=== PATIENT | male | born 1935 | race Caucasian/White ===

== ENCOUNTER 2017-06-27 15:57 | Inpatient (IN) | payer MEDICARE, SELFPAY ==
[2017-06-27] VITALS (7 sets, daily range): BP systolic 117–145; BP diastolic 52–102; PULSE 61–97; RESP 14–22; TEMP 36.2–37.2; O2SAT 91–97; BMI 23.2; BMI 23.3
--- NOTE | 2017-06-27 16:16 | NURSING ---
NO OLD EKGS
--- NOTE | 2017-06-27 16:24 | EKG12_ITS ---
Test Reason : REEPEAT Blood Pressure : / mmHG Vent. Rate : 072 BPM Atrial Rate : 072 BPM P-R Int : 230 ms QRS Dur : 104 ms QT Int : 432 ms P-R-T Axes : 036 002 046 degrees QTc Int : 473 ms Sinus rhythm with 1st degree A-V block with frequent Premature ventricular complexes Otherwise normal ECG Confirmed by KENDALL SOTO ([id number]), associate editor MONTSE REESE ([id number]) on 06/29/2017 2:43:56 PM Referred By: MARLENE Confirmed By:KENDALL SOTO
--- NOTE | 2017-06-27 16:24 | RAD_ITS ---
STUDY: X-RAY CHEST REASON FOR EXAM: Male, 81 years old. Chest pain. TECHNIQUE: Portable frontal COMPARISON: None. FINDINGS: There is elevation of the right hemidiaphragm. There is perihilar fullness associated with indistinct pulmonary bronchovasculature and prominent interstitial markings. There are faint nodules throughout the lungs. There is cardiomegaly present. There is atherosclerotic calcification of the aortic arch with tortuosity. There are diffuse degenerative changes of the visualized thoracic spine. There is degenerative osteoarthritis of the bilateral shoulders. There is no demonstrated abnormality of the visualized soft tissue structures of the upper abdomen. RAD/Chest 1 View (Portable) IMPRESSION: Cardiomegaly associated with pulmonary venous congestion and possible interstitial edema. Scattered scattered faint nodules throughout the lungs, consider CT for further evaluation. Electronically Signed: Alethea Mujica MD at 16:53 EST Tel , Service support ,
--- NOTE | 2017-06-27 16:27 | ED.DCSUM_ITS ---
- ER Visit Summary Date of Service: 06/27/17 Chief Complaint: Palpitations History of Present Illness: The patient is a 81 M presenting with palpitations for 1-2 days. Patient states that he feels his heart thumping in his chest. He states that he sometimes feels like it is skipping beats. He denies chest pain or shortness of breath. Denies weakness or fatigue. Denies dizziness or syncope. He states he otherwise feels well. He tried to take his blood pressure today and the machine was unable to read his pulse because it was irregular. Physical Examination: Vitals are stable. Patient is afebrile. Alert no acute distress. HEENT exam is unremarkable. Neck is supple. Lungs are clear and equal bilaterally. Heart is regular rate and rhythm. Abdomen is soft nontender nondistended. Extremities symmetric pedal edema Skin is warm and dry. No focal neurologic deficit. Remainder of exam is unremarkable. Emergency Department Course and Treatment: EKG is sinus rate of 86 with frequent PVCs. CBC shows hemoglobin 12.9. Chemistries normal except for glucose 125, BUN 22. Troponin is negative. BNP 542. D-dimer is normal. TSH 4.8. Magnesium level 2.1. Chest x-ray shows cardiomegaly. EKG is sinus with frequent PVCs. While on the monitor patient developed ventricular bigeminy. Discussed with the hospitalist for observation. Disposition: Admission Impression: Ventricular bigeminy, CHF This note was generated with [employer] dictation software. It may contain incorrect words, spelling, and punctuation that were not noted in review of the chart prior to signing ED Disposition - Plan for ED Patient: Chief Complaint: Palpitations Referrals: Chaitanya Pal Chi, MD [Primary Care Provider] -
--- NOTE | 2017-06-27 16:27 | NURSING ---
NO LW OR POA
[2017-06-27] MEDS: Aspirin 81 MG TAB.CHEW 324 MG PO (16:35)
[2017-06-27 16:59] LABS: Absolute Lymphocyte Count 0.97 X10^3/ul (0.83-4.51); Absolute Neutrophil Count 5.9 X10^3/uL (2.0-7.7); Basophil# 0.03 X10^3/uL; Basophil% 0.4 % (0-1); Eosinophil# 0.03 X10^3/uL; Eosinophils% 0.4 % (0-5); Hematocrit 39.6 % (40-54); Hemoglobin 12.9 g/dl (13.0-16.5); Lymphocyte # 0.97 X10^3/ul (4.0); Lymphocyte % 12.8 % (19-41); Mean Corp Hgb Conc 32.6 g/gl (32-36); Mean Corpuscular Hgb 30.6 pg (27.0-32.0); Mean Corpuscular Volume 93.8 fL (80-94); Mean Platelet Vol. 9.7 fl (6.2-12.0); Monocyte# 0.62 X10^3/uL; Monocyte% 8.2 % (0-10); Neutrophil % 77.9 % (47-70); POSITIVE COUNT NO; POSITIVE DIFFERENTIAL NO; POSITIVE MORPHOLOGY NO; Platelet Count 180 K/mm3 (150-450); RBC Distribution Width CV 13.6 % (11.6-14.6); RBC Distribution Width SD 46.5 fl (35.1-43.9); Red Blood Count 4.22 M/mm3 (4.6-6.2); White Blood Count 7.6 K/mm3 (4.4-11.0)
[2017-06-27 17:15] LABS: Anion Gap 8 (5-15); BUN 22 mg/dL (7-18); BUN/Creat Ratio 21.4 RATIO (10-20); Calcium,Total 8.5 mg/dL (8.5-10.1); Chloride 101 mmol/L (98-107); Creatinine, Serum 1.03 mg/dL (0.70-1.30); EST Glomerular Filtration Rate 73 mL/min (>60); Est Glom Filt Rate - Afr Amer 89 mL/min (>60); Estimated Creatinine Clearance 62.41 ml/min; Glucose 125 mg/dL (74-106); Magnesium 2.1 mg/dL (1.6-2.6); Potassium 4.1 mmol/L (3.5-5.1); Sodium Level 134 mmol/L (136-145)
--- NOTE | 2017-06-27 17:33 | EKG12_ITS ---
Test Reason : PALPS Blood Pressure : / mmHG Vent. Rate : 086 BPM Atrial Rate : 086 BPM P-R Int : 226 ms QRS Dur : 100 ms QT Int : 388 ms P-R-T Axes : 069 -05 031 degrees QTc Int : 464 ms Sinus rhythm with 1st degree A-V block with frequent and consecutive Premature ventricular complexes Abnormal ECG Confirmed by KENDALL SOTO ([id number]), brands editor MONTSE REESE ([id number]) on 06/29/2017 2:44:19 PM Referred By: MARLON/MARLENE Confirmed By:KENDALL SOTO
[2017-06-27 21:40] LABS: Free T3 2.5 pg/mL (2.18-3.98); T4 Free Direct 1.11 ng/dL (0.76-1.46)
[2017-06-27] MEDS: Heparin Injection 5,000 UNITS/ML Syringe 5000 UNITS SC (21:57)
[2017-06-27] MEDS: Furosemide 20 MG/2 ML VIAL IV (21:57)
--- NOTE | 2017-06-27 22:02 | PCM.HP.STD ---
Problem List (1) Heart palpitations Status: Acute History of Present Illness Date of Admission: 06/27/17 Chief Complaint: palpitations The patient is a 81 year old M who was seen in the emergency room at [facility] means of palpitations which he states started today. Patient denies any chest pain, shortness of breath, cough, or purulent sputum production, fever or chills. Patient also complained of increased swelling around his ankles and feet that he noted first last week. Evaluation in the emergency room included labs which showed a normal CBC, BUN was elevated at 22, beta natruretic peptide was elevated at 542, TSH was elevated at 4.80. Patient had a chest x-ray which was read out by radiology to show mild vascular congestion/CHF. Patient's EKG showed periods of ventricular bigeminy along with periods of what appear to be Mobitz 1 type heart block. Patient's heart rate was approximately 75, there is no evidence of ischemic changes noted on his EKG, patient's troponin was unremarkable. On examination, patient's ankles appeared to be edematous bilaterally with +2 mm edema as were his feet. Patient's pulse ox on room air was noted to be in the 90s and he did not appear dyspneic. Auscultation of the lungs revealed inspiratory rales at the right lung base otherwise lungs are clear, heart rate and rhythm was irregular. Patient was alert and did not appear to be in any distress. I had a long discussion with the patient and the patient's family members (his and daughter) who were in the room. Patient denied any chest discomfort and denied any recent flulike illness. Patient will be admitted to PCU for acute CHF, type unknown, and bigeminy as well as Mobitz 1 type heart block. Echocardiogram will be obtained, patient was placed on IV Lasix, cardiac enzymes will be cycled, he will be seen in consultation by cardiology who requested that he be n.p.o. after midnight for possible stress test tomorrow. Patient's chest x-ray will be repeated tomorrow, he will be monitored on telemetry and he will remain on Lotrel for his blood pressure. Patient's labs will be drawn for T3 and T4 as the patient does not take his Synthroid-family states that he was worried about side effects and is not taking this medication since last fall. Past Medical History Allergies No Known Allergies Allergy (Verified 06/27/17 15:58) Home Medications: Ambulatory Orders Medication Instructions Recorded Amlodipine/Benazepril [Lotrel 1 capsule PO DAILY 06/27/17 10-20 MG Capsule] Surgical History: no surgical history Psychiatric History: No pertinent psych hx Lives: Spouse/ Significant Other Smoking Status: Former smoker Tobacco Use: Non-smoker Alcohol: Rare Drugs: None - *Family History Maternal History Items: No pertinent history Paternal History Items: No pertinent history Review of Systems Constitutional: Denies: Anorexia, Chills, Fever, Night Sweats, Malaise, Weakness, Weight Change, Fatigue Eyes: Denies: Blurred vision, Cataracts, Conjunctivae Inflammation, Double vision, Drainage HEENT: Denies: Difficulty Hearing, Difficulty Swallowing, Dysphasia, Ear Pain, Eye Pain, Head Aches, Hearing Changes, Nasal bleeding, Nasal Congestion Cardiovascular: Reports: Edema, Palpitations. Denies: Chest Pain, Claudication, Chest Pressure, Chest Tightness, Heaviness, Light Headedness, Orthopnea, Paroxysmal Noc. Dyspnea, Syncope Respiratory: Denies: Cough, Hemoptysis, Pleuritic Pain, Shortness of Breath, Shortness of breath at rest, Shortness of breath upon exertion, Sputum production, Wheezing Gastrointestinal: Denies: Abdominal Pain, Constipation, Diarrhea, Hematemesis, Hematochezia, Nausea, Melena, Vomiting Genitourinary: Denies: Dysuria, Frequency, Hematuria, Hesitancy, Urgency Musculoskeletal: Denies: Back Pain, Foot Pain, Joint Pain, Joint stiffness, Joint swelling, Joint Tenderness, Leg Pain Skin: Denies: Dryness, Jaundice, Pruritis, Rash Neurological: Denies: Blurred vision, Double vision, Slurred speech, Difficulty swallowing, Focal weakness, Headaches, Incoordination, Numbness, Tingling Psychiatric: Denies: Anxiety, Depression, Homicidal Ideations, Suicidal Ideations Endocrine: Denies: Change in Body Habitus, Heat/ Cold Intolerance, Polydipsia, Polyuria Hematologic/ Lymphatic: Denies: Adenopathy, Anemia, Easy Bruising, Easy Bleeding, Petechiae, Purpura VTE Information - Inpt Only VTE Present on Admission: No VTE Mechan Device Prophylaxis: None VTE Pharm Prophylaxis ordered?: Yes Patient Problems: Active and Suspected Problems Heart palpitations (Acute) - Physical Exam General: Alert, Oriented x3, Cooperative, No apparent distress, Well developed, Well nourished HEENT: Atraumatic, PERRLA, EOMI, Normocephalic Oral: Moist Mucosa Neck: Supple, No JVD, Negative Carotid Bruits, No Nuchal Rigidity, Trachea Midline, Thyroid Normal Size and Texture Lungs: Clear to auscultation, Normal air movement, No rhonchi, No wheeze, Rales - Inspiratory rales at the right lung base Cardiovascular: Normal S1, Normal S2, No murmurs, PMI Normal, Irregular Rate, No rub noted, No Gallop Abdomen: Bowel Sounds Present, Soft, Non Tender, Non-Distended, No hernias noted Extremities: Capillary Refill Less than 3 Seconds, Edema - +2 mm pitting edema is noted over the ankles and feet Skin: No rashes, No breakdown Musculoskeletal: No Tenderness to Palpation of Joints or Extremities, No Muscle Wasting Neurological: Cranial nerves II-XII grossly intact, Neuro grossly intact, Muscle tone normal, Sensory exam intact to light touch and pain, Coordination normal Psych/Mental Status: Normal Affect, Appropriate, Alert and oriented to time, place, person, mood and affect Vital Signs Temp Pulse Resp BP Pulse Ox 99.0 F 78 22 H 118/57 L 91 06/27/17 20:08 06/27/17 20:08 06/27/17 20:08 06/27/17 20:08 06/27/17 20:08 Oxygen Delivery Method Room Air Weight: 80.1 kg Body Mass Index (BMI) 23.3 Laboratory Tests Past 24 Hrs 06/27/17 06/27/17 20:55 20:55 Troponin I 0.03 Free T4 1.11 Free T3 pg/dL 2.5 Assessment/Plan Active and Suspected Problems Heart palpitations (Acute) #1 ventricular bigeminy with periods of Mobitz 1 second degree heart block-patient will be admitted to PCU, he will be monitored on telemetry, echocardiogram will be obtained, cardiology will see the patient in consultation, patient will possibly need a stress test performed #2 acute congestive heart failure-this appears to be mild at the present time, patient is not hypoxic, type of congestive heart failure is unknown at this time, echocardiogram will be obtained and he will be seen in consultation by cardiology, IV Lasix will be administered, labs will be repeated, chest x-ray will be repeated #3 hypertension #4 peripheral edema-possibly secondary to congestive heart failure versus side effect from Lotrel which she takes for blood pressure #5 hypothyroidism-T3 and T4 levels will be obtained #6 poor medical compliance with medications Code Visit Inpatient E&M: 16730 Init Hosp L3
--- NOTE | 2017-06-27 22:13 | HP.PCM_ITS ---
Problem List (1) Heart palpitations Status: Acute History of Present Illness Date of Admission: 06/27/17 Chief Complaint: palpitations The patient is a 81 year old M who was seen in the emergency room at [facility] means of palpitations which he states started today. Patient denies any chest pain, shortness of breath, cough, or purulent sputum production, fever or chills. Patient also complained of increased swelling around his ankles and feet that he noted first last week. Evaluation in the emergency room included labs which showed a normal CBC, BUN was elevated at 22, beta natruretic peptide was elevated at 542, TSH was elevated at 4.80. Patient had a chest x-ray which was read out by radiology to show mild vascular congestion/CHF. Patient's EKG showed periods of ventricular bigeminy along with periods of what appear to be Mobitz 1 type heart block. Patient's heart rate was approximately 75, there is no evidence of ischemic changes noted on his EKG, patient's troponin was unremarkable. On examination, patient's ankles appeared to be edematous bilaterally with +2 mm edema as were his feet. Patient's pulse ox on room air was noted to be in the 90s and he did not appear dyspneic. Auscultation of the lungs revealed inspiratory rales at the right lung base otherwise lungs are clear, heart rate and rhythm was irregular. Patient was alert and did not appear to be in any distress. I had a long discussion with the patient and the patient's family members (his and daughter) who were in the room. Patient denied any chest discomfort and denied any recent flulike illness. Patient will be admitted to PCU for acute CHF, type unknown, and bigeminy as well as Mobitz 1 type heart block. Echocardiogram will be obtained, patient was placed on IV Lasix, cardiac enzymes will be cycled, he will be seen in consultation by cardiology who requested that he be n.p.o. after midnight for possible stress test tomorrow. Patient's chest x-ray will be repeated tomorrow, he will be monitored on telemetry and he will remain on Lotrel for his blood pressure. Patient's labs will be drawn for T3 and T4 as the patient does not take his Synthroid-family states that he was worried about side effects and is not taking this medication since last fall. Past Medical History Allergies No Known Allergies Allergy (Verified 06/27/17 15:58) Home Medications: Ambulatory Orders Medication Instructions Recorded Amlodipine/Benazepril [Lotrel 1 capsule PO DAILY 06/27/17 10-20 MG Capsule] Surgical History: no surgical history Psychiatric History: No pertinent psych hx Lives: Spouse/ Significant Other Smoking Status: Former smoker Tobacco Use: Non-smoker Alcohol: Rare Drugs: None - *Family History Maternal History Items: No pertinent history Paternal History Items: No pertinent history Review of Systems Constitutional: Denies: Anorexia, Chills, Fever, Night Sweats, Malaise, Weakness , Weight Change, Fatigue Eyes: Denies: Blurred vision, Cataracts, Conjunctivae Inflammation, Double vision, Drainage HEENT: Denies: Difficulty Hearing, Difficulty Swallowing, Dysphasia, Ear Pain, Eye Pain, Head Aches, Hearing Changes, Nasal bleeding, Nasal Congestion Cardiovascular: Reports: Edema, Palpitations. Denies: Chest Pain, Claudication , Chest Pressure, Chest Tightness, Heaviness, Light Headedness, Orthopnea, Paroxysmal Noc. Dyspnea, Syncope Respiratory: Denies: Cough, Hemoptysis, Pleuritic Pain, Shortness of Breath, Shortness of breath at rest, Shortness of breath upon exertion, Sputum production, Wheezing Gastrointestinal: Denies: Abdominal Pain, Constipation, Diarrhea, Hematemesis, Hematochezia, Nausea, Melena, Vomiting Genitourinary: Denies: Dysuria, Frequency, Hematuria, Hesitancy, Urgency Musculoskeletal: Denies: Back Pain, Foot Pain, Joint Pain, Joint stiffness, Joint swelling, Joint Tenderness, Leg Pain Skin: Denies: Dryness, Jaundice, Pruritis, Rash Neurological: Denies: Blurred vision, Double vision, Slurred speech, Difficulty swallowing, Focal weakness, Headaches, Incoordination, Numbness, Tingling Psychiatric: Denies: Anxiety, Depression, Homicidal Ideations, Suicidal Ideations Endocrine: Denies: Change in Body Habitus, Heat/ Cold Intolerance, Polydipsia, Polyuria Hematologic/ Lymphatic: Denies: Adenopathy, Anemia, Easy Bruising, Easy Bleeding , Petechiae, Purpura VTE Information - Inpt Only VTE Present on Admission: No VTE Mechan Device Prophylaxis: None VTE Pharm Prophylaxis ordered?: Yes Patient Problems: Active and Suspected Problems Heart palpitations (Acute) - Physical Exam General: Alert, Oriented x3, Cooperative, No apparent distress, Well developed, Well nourished HEENT: Atraumatic, PERRLA, EOMI, Normocephalic Oral: Moist Mucosa Neck: Supple, No JVD, Negative Carotid Bruits, No Nuchal Rigidity, Trachea Midline, Thyroid Normal Size and Texture Lungs: Clear to auscultation, Normal air movement, No rhonchi, No wheeze, Rales - Inspiratory rales at the right lung base Cardiovascular: Normal S1, Normal S2, No murmurs, PMI Normal, Irregular Rate, No rub noted, No Gallop Abdomen: Bowel Sounds Present, Soft, Non Tender, Non-Distended, No hernias noted Extremities: Capillary Refill Less than 3 Seconds, Edema - +2 mm pitting edema is noted over the ankles and feet Skin: No rashes, No breakdown Musculoskeletal: No Tenderness to Palpation of Joints or Extremities, No Muscle Wasting Neurological: Cranial nerves II-XII grossly intact, Neuro grossly intact, Muscle tone normal, Sensory exam intact to light touch and pain, Coordination normal Psych/Mental Status: Normal Affect, Appropriate, Alert and oriented to time, place, person, mood and affect Vital Signs Temp Pulse Resp BP Pulse Ox 99.0 F 78 22 H 118/57 L 91 06/27/17 20:08 06/27/17 20:08 06/27/17 20:08 06/27/17 20:08 06/27/17 20:08 Oxygen Delivery Method Room Air Weight: 80.1 kg Body Mass Index (BMI) 23.3 Laboratory Tests Past 24 Hrs 06/27/17 06/27/17 20:55 20:55 Troponin I 0.03 Free T4 1.11 Free T3 pg/dL 2.5 Assessment/Plan Active and Suspected Problems Heart palpitations (Acute) #1 ventricular bigeminy with periods of Mobitz 1 second degree heart block- patient will be admitted to PCU, he will be monitored on telemetry, echocardiogram will be obtained, cardiology will see the patient in consultation , patient will possibly need a stress test performed #2 acute congestive heart failure-this appears to be mild at the present time, patient is not hypoxic, type of congestive heart failure is unknown at this time , echocardiogram will be obtained and he will be seen in consultation by cardiology, IV Lasix will be administered, labs will be repeated, chest x-ray will be repeated #3 hypertension #4 peripheral edema-possibly secondary to congestive heart failure versus side effect from Lotrel which she takes for blood pressure #5 hypothyroidism-T3 and T4 levels will be obtained #6 poor medical compliance with medications Code Visit Inpatient E&M: 89480 Init Hosp L3
[2017-06-28] VITALS (34 sets, daily range): BP systolic 87–128; BP diastolic 47–79; PULSE 54–87; RESP 11–25; TEMP 36.8–37.7; O2SAT 92–99
--- NOTE | 2017-06-28 05:55 | ECHOD_ITS ---
Reason For Study: CHF Procedure This was a 2D Doppler, Color Flow transthoracic echocardiogram. Exam performed portable in patient room. Left Ventricle Mildly dilated left ventricle. The estimated ejection fraction is 40 %. cannot assess diastolic function due to afib. There is moderate global hypokinesis of the left ventricle. Right Ventricle Normal size and thickness. Normal systolic function. Atria The left atrium is moderately enlarged. Normal right atrium. Normal atrial septum. Mitral Valve Mild diffuse mitral valve thickening. Equivocal mitral valve prolapse. Trivial mitral valve insufficiency. Tricuspid Valve Normal tricuspid valve. Mild to moderate (1-2+) tricuspid valve insufficiency. Right ventricular systolic pressure estimated to be 57 mmHg. Moderate pulmonary hypertension. Aortic Valve Trisinus/trileaflet aortic valve. Mild diffuse aortic valve thickening. Pulmonic Valve Normal pulmonic valve. Trivial pulmonic valve insufficiency. Great Vessels Normal aortic root. Normal arch. The inferior vena cava is dilated. No collapse of the inferior vena cava. Pericardium/Pleural No pericardial effusion. MMode/2D Measurements & Calculations LVIDd: 5.4 cm IVSd: 1.2 cm LVOT diam: 2.2 cm LVIDs: 4.4 cm LVPWd: 1.0 cm LVOT area: 3.7 cm2 RVDd: 3.2 cm FS: 18.8 % Ao root diam: 3.9 cm LAV(MOD-bp): 62.3 ml EDV(MOD-sp4): 110.7 ml LA dimension: 4.4 cm LAV(MOD-bp) Indexed: 30.6 ml/m2 ESV(MOD-sp4): 79.1 ml LAV(MOD-sp2): 85.2 ml EF(MOD-sp4): 28.5 % LAV(MOD-sp4): 45.2 ml EDV(MOD-sp2): 69.5 ml SV(MOD-sp4): 31.6 ml SV(MOD-sp2): 27.0 ml EF(MOD-sp2): 38.9 % LA A4 area: 18.1 cm2 RA A4 area: 18.1 cm2 Doppler Measurements & Calculations MV E max sabrina: 95.0 cm/sec Ao V2 max: 139.0 cm/sec LV V1 max: 95.0 cm/sec MV A max sabrina: 60.0 cm/sec Ao max P.8 mmHg LV V1 max P.6 mmHg MV E/A: 1.6 ILIANA(V,D): 2.5 cm2 PA V2 max: 97.2 cm/sec TR max sabrina: 294.0 cm/sec TR max P.6 mmHg Interpretation Summary Mildly dilated left ventricle. The estimated ejection fraction is 40 %. cannot assess diastolic function due to afib There is moderate global hypokinesis of the left ventricle. The left atrium is moderately enlarged. Trivial mitral valve insufficiency. Mild to moderate (1-2+) tricuspid valve insufficiency. Right ventricular systolic pressure estimated to be 57 mmHg. Moderate pulmonary hypertension. Pt appears to be in atrial fibrillation. There is no comparison study available. Ordering Physician: Nicola Donnelly Referring Physician: Chaitanya Pal Chi Performed By: Gianna Lara RDCS, RVT
--- NOTE | 2017-06-28 05:55 | EKG12_ITS ---
Test Reason : MORNING EKG Blood Pressure : / mmHG Vent. Rate : 072 BPM Atrial Rate : 072 BPM P-R Int : 000 ms QRS Dur : 108 ms QT Int : 456 ms P-R-T Axes : 000 -14 -16 degrees QTc Int : 499 ms Accelerated Junctional rhythm with frequent and consecutive Premature ventricular complexes in a joe destiny of bigeminy Prolonged QT Abnormal ECG When compared with ECG of 27-JUN-2017 17:37, MANUAL COMPARISON REQUIRED, DATA IS UNCONFIRMED Confirmed by KENDALL SOTO ([id number]), marketing editor MONTSE REESE ([id number]) on 07/04/2017 2:21:14 PM Referred By: CECY Confirmed By:KENDALL SOTO
[2017-06-28] MEDS: Heparin Injection 5,000 UNITS/ML Syringe 5000 UNITS SC (05:56)
[2017-06-28] MEDS: Furosemide 20 MG/2 ML VIAL IV (05:56)
[2017-06-28] MEDS: 0.9% NaCl Peripheral Flush Adult/Peds IV (05:57)
[2017-06-28 06:45] LABS: Absolute Lymphocyte Count 1.26 X10^3/ul (0.83-4.51); Absolute Neutrophil Count 3.6 X10^3/uL (2.0-7.7); Basophil# 0.04 X10^3/uL; Basophil% 0.7 % (0-1); Eosinophil# 0.06 X10^3/uL; Eosinophils% 1.1 % (0-5); Hematocrit 39.7 % (40-54); Hemoglobin 13.2 g/dl (13.0-16.5); Lymphocyte # 1.26 X10^3/ul (4.0); Lymphocyte % 22.5 % (19-41); Mean Corp Hgb Conc 33.2 g/gl (32-36); Mean Corpuscular Hgb 30.9 pg (27.0-32.0); Mean Platelet Vol. 9.6 fl (6.2-12.0); Monocyte# 0.65 X10^3/uL; Monocyte% 11.6 % (0-10); Neutrophil # 3.58 X10^3/uL (2.7-7.7); Neutrophil % 63.9 % (47-70); Platelet Count 170 K/mm3 (150-450); RBC Distribution Width CV 13.6 % (11.6-14.6); RBC Distribution Width SD 46.4 fl (35.1-43.9); Red Blood Count 4.27 M/mm3 (4.6-6.2); White Blood Count 5.6 K/mm3 (4.4-11.0)
[2017-06-28 06:51] LABS: International Normalized Ratio 1.3; Prothrombin Time (Protime)PT. 15.3 SECONDS (11.7-14.9)
[2017-06-28 06:52] LABS: Partial Thromboplast Time 33.8 Seconds (24.1-36.2)
[2017-06-28 06:53] LABS: POSITIVE COUNT NO; POSITIVE DIFFERENTIAL NO; POSITIVE MORPHOLOGY NO
[2017-06-28 07:15] LABS: Anion Gap 9 (5-15); BUN 16 mg/dL (7-18); BUN/Creat Ratio 19.5 RATIO (10-20); Calcium,Total 8.4 mg/dL (8.5-10.1); Chloride 100 mmol/L (98-107); Creatinine, Serum 0.82 mg/dL (0.70-1.30); EST Glomerular Filtration Rate 95 mL/min (>60); Est Glom Filt Rate - Afr Amer 115 mL/min (>60); Estimated Creatinine Clearance 78.49 ml/min; Glucose 105 mg/dL (74-106); Potassium 3.6 mmol/L (3.5-5.1); Sodium Level 134 mmol/L (136-145)
[2017-06-28] MEDS: Lisinopril 20 MG Tablet PO (09:44)
[2017-06-28] MEDS: amLODIPine 10 MG Tablet PO (09:44)
[2017-06-28] MEDS: TICAGRELOR 90 MG TABLET 180 MG PO (10:53)
[2017-06-28] MEDS: DiphenhydrAMINE 25 MG Capsule 50 MG PO (10:54)
[2017-06-28] MEDS: Aspirin E.C. 81 MG Tablet PO (10:54)
--- NOTE | 2017-06-28 12:00 | EKG12_ITS ---
Test Reason : POST STENT Blood Pressure : / mmHG Vent. Rate : 068 BPM Atrial Rate : 227 BPM P-R Int : 000 ms QRS Dur : 100 ms QT Int : 446 ms P-R-T Axes : 000 -29 267 degrees QTc Int : 474 ms Atrial fibrillation with premature ventricular or aberrantly conducted complexes Abnormal ECG When compared with ECG of 28-JUN-2017 05:00, MANUAL COMPARISON REQUIRED, DATA IS UNCONFIRMED Confirmed by KENDALL SOTO ([id number]), makeup editor MONTSE REESE ([id number]) on 07/04/2017 1:55:48 PM Referred By: Debora SOTO Confirmed By:KENDALL SOTO
[2017-06-28 12:06] LABS: ACT Activated Clotting Time 186 sec (74-137)
--- NOTE | 2017-06-28 12:17 | PCM.PROGNOTE ---
<Nati Oropeza - Last Filed: 06/28/17 12:37> Patient Problems: Active and Suspected Problems Heart palpitations (Acute) Lower extremity edema (Acute) Shortness of breath (Acute) LV dysfunction (Acute) Subjective: Patient seen and examined. States he came to the emergency room due to swelling of feet at home. Denies chest pain, shortness of breath, palpitations. Patient to undergo cardiac catheterization due to echocardiogram findings. Patient agreeable to plan. - Physical Exam General: Alert, Oriented x3, Cooperative, No apparent distress HEENT: Atraumatic, PERRLA, EOMI, Normocephalic Neck: Supple, No JVD, Negative Carotid Bruits Lungs: Diminished, Rales Cardiovascular: Normal S1, Normal S2, No murmurs, - - A.fib, rate controlled. Abdomen: Bowel Sounds Present, Soft, Non Tender, Non-Distended Extremities: No clubbing, No cyanosis, Capillary Refill Less than 3 Seconds, - - Nonpitting edema bilateral feet/ankles Skin: No rashes, No breakdown Musculoskeletal: No Tenderness to Palpation of Joints or Extremities Neurological: Cranial nerves II-XII grossly intact, Neuro grossly intact Psych/Mental Status: Normal Affect, Appropriate Vital Signs Temp Pulse Resp BP Pulse Ox 98.7 F 84 18 119/54 L 98 06/28/17 09:28 06/28/17 10:59 06/28/17 09:28 06/28/17 09:28 06/28/17 09:28 Oxygen Delivery Method Room Air Weight: 80.1 kg Body Mass Index (BMI) 23.3 Intake and Output for Last 24 Hours 06/26/17 06/27/17 06/28/17 23:59 23:59 23:59 Intake Total 240 / 240 Output Total 550 / 550 2975 / 2975 Balance -310 / -310 -2975 / -2975 Laboratory Tests Past 24 Hrs 06/27/17 06/27/17 06/28/17 20:55 20:55 00:50 WBC RBC Hgb Hct MCV MCH MCHC RDW RDW Differential Plt Count MPV Immature Gran % (Auto) Neut % (Auto) Lymph % (Auto) [place] % (Auto) Eos % (Auto) Baso % (Auto) Absolute Neuts (auto) Absolute Lymphs (auto) Total Counted PT INR APTT Activated Clotting Time Sodium Potassium Chloride Carbon Dioxide Anion Gap BUN Creatinine Estim Creat Clear Calc Est GFR (MDRD) Af Amer Est GFR (MDRD) Non-Af BUN/Creatinine Ratio Glucose Calcium Troponin I 0.03 0.03 Free T4 1.11 Free T3 pg/dL 2.5 06/28/17 06/28/17 06/28/17 06:30 06:30 06:30 WBC 5.6 RBC 4.27 L Hgb 13.2 Hct 39.7 L MCV 93.0 MCH 30.9 MCHC 33.2 RDW 13.6 RDW Differential 46.4 H Plt Count 170 MPV 9.6 Immature Gran % (Auto) 0.200 Neut % (Auto) 63.9 Lymph % (Auto) 22.5 [place] % (Auto) 11.6 H Eos % (Auto) 1.1 Baso % (Auto) 0.7 Absolute Neuts (auto) 3.6 Absolute Lymphs (auto) 1.26 Total Counted Not Reportable PT 15.3 H INR 1.3 APTT 33.8 Activated Clotting Time Sodium 134 L Potassium 3.6 Chloride 100 Carbon Dioxide 25.0 Anion Gap 9 BUN 16 Creatinine 0.82 Estim Creat Clear Calc 78.49 Est GFR (MDRD) Af Amer 115 Est GFR (MDRD) Non-Af 95 BUN/Creatinine Ratio 19.5 Glucose 105 Calcium 8.4 L Troponin I 0.03 Free T4 Free T3 pg/dL 06/28/17 11:56 WBC RBC Hgb Hct MCV MCH MCHC RDW RDW Differential Plt Count MPV Immature Gran % (Auto) Neut % (Auto) Lymph % (Auto) [place] % (Auto) Eos % (Auto) Baso % (Auto) Absolute Neuts (auto) Absolute Lymphs (auto) Total Counted PT INR APTT Activated Clotting Time 186 H Sodium Potassium Chloride Carbon Dioxide Anion Gap BUN Creatinine Estim Creat Clear Calc Est GFR (MDRD) Af Amer Est GFR (MDRD) Non-Af BUN/Creatinine Ratio Glucose Calcium Troponin I Free T4 Free T3 pg/dL Assessment/Plan Active and Suspected Problems Heart palpitations (Acute) Lower extremity edema (Acute) Shortness of breath (Acute) LV dysfunction (Acute) 1. Acute CHF with reduced EF- Echo showed estimated ejection fraction of 40%, moderate global hypokinesis of the left ventricle, moderately enlarged left atrium, mild to moderate tricuspid valve insufficiency, moderate pulmonary hypertension with RVSP estimated to be 57 mmHg. Chest x-ray on admission with pulmonary congestion. Patient with minimal edema bilateral feet and ankles. Denies shortness of breath. Stable on room air. Continue Lasix 40 mg daily. Troponin negative. Dr. Quiroz, Cardiology consulted. Patient to undergo cardiac catheterization. 2. Ventricular bigeminy/Mobitz 1 secondary block-to undergo cardiac catheterization as noted above. Patient is asymptomatic. 3. Hypertension-stable, continue home regimen. 4. Subclinical hypothyroidism-TSH 4.8. T3-T4 normal. DVT prophylaxis-heparin subcu. This patient was seen by Nati Oropeza NP-Martina under the supervision of Dr. Will. <Jamarcus Will - Last Filed: 06/28/17 16:00> - Physical Exam General: Alert, Cooperative, No apparent distress HEENT: Atraumatic, Normocephalic Lungs: Clear to auscultation, Normal air movement, No rhonchi, No wheeze Cardiovascular: Regular rate, Regular Rhythm, Normal S1, Normal S2 Abdomen: Bowel Sounds Present, Soft, Non Tender, Non-Distended Extremities: No cyanosis, No Calf Tenderness, - Skin: No rashes, No breakdown Musculoskeletal: No Tenderness to Palpation of Joints or Extremities Psych/Mental Status: Normal Affect, Appropriate Vital Signs Temp Pulse Resp BP Pulse Ox 37.4 C H 68 17 112/62 96 06/28/17 14:00 06/28/17 14:10 06/28/17 14:10 06/28/17 14:10 06/28/17 14:10 Oxygen Flow Rate 2 Oxygen Delivery Method Nasal Cannula Weight: 80.1 kg Body Mass Index (BMI) 23.3 Intake and Output for Last 24 Hours 06/26/17 06/27/17 06/28/17 23:59 23:59 23:59 Intake Total 240 / 240 Output Total 550 / 550 2975 / 2975 Balance -310 / -310 -2975 / -2975 Laboratory Tests Past 24 Hrs 06/27/17 06/27/17 06/28/17 20:55 20:55 00:50 WBC RBC Hgb Hct MCV MCH MCHC RDW RDW Differential Plt Count MPV Immature Gran % (Auto) Neut % (Auto) Lymph % (Auto) [place] % (Auto) Eos % (Auto) Baso % (Auto) Absolute Neuts (auto) Absolute Lymphs (auto) Total Counted PT INR APTT Activated Clotting Time Sodium Potassium Chloride Carbon Dioxide Anion Gap BUN Creatinine Estim Creat Clear Calc Est GFR (MDRD) Af Amer Est GFR (MDRD) Non-Af BUN/Creatinine Ratio Glucose Calcium Total Creatine Kinase Troponin I 0.03 0.03 Free T4 1.11 Free T3 pg/dL 2.5 MRSA (PCR) 06/28/17 06/28/17 06/28/17 06:30 06:30 06:30 WBC 5.6 RBC 4.27 L Hgb 13.2 Hct 39.7 L MCV 93.0 MCH 30.9 MCHC 33.2 RDW 13.6 RDW Differential 46.4 H Plt Count 170 MPV 9.6 Immature Gran % (Auto) 0.200 Neut % (Auto) 63.9 Lymph % (Auto) 22.5 [place] % (Auto) 11.6 H Eos % (Auto) 1.1 Baso % (Auto) 0.7 Absolute Neuts (auto) 3.6 Absolute Lymphs (auto) 1.26 Total Counted Not Reportable PT 15.3 H INR 1.3 APTT 33.8 Activated Clotting Time Sodium 134 L Potassium 3.6 Chloride 100 Carbon Dioxide 25.0 Anion Gap 9 BUN 16 Creatinine 0.82 Estim Creat Clear Calc 78.49 Est GFR (MDRD) Af Amer 115 Est GFR (MDRD) Non-Af 95 BUN/Creatinine Ratio 19.5 Glucose 105 Calcium 8.4 L Total Creatine Kinase Troponin I 0.03 Free T4 Free T3 pg/dL MRSA (PCR) 06/28/17 06/28/17 06/28/17 11:56 12:30 12:37 WBC RBC Hgb Hct MCV MCH MCHC RDW RDW Differential Plt Count MPV Immature Gran % (Auto) Neut % (Auto) Lymph % (Auto) [place] % (Auto) Eos % (Auto) Baso % (Auto) Absolute Neuts (auto) Absolute Lymphs (auto) Total Counted PT INR APTT Activated Clotting Time 186 H 257 H Sodium Potassium Chloride Carbon Dioxide Anion Gap BUN Creatinine Estim Creat Clear Calc Est GFR (MDRD) Af Amer Est GFR (MDRD) Non-Af BUN/Creatinine Ratio Glucose Calcium Total Creatine Kinase Troponin I Free T4 Free T3 pg/dL MRSA (PCR) Negative 06/28/17 06/28/17 06/28/17 13:00 13:00 13:26 WBC 6.8 RBC 4.04 L Hgb 12.5 L Hct 37.7 L MCV 93.3 MCH 30.9 MCHC 33.2 RDW 13.5 RDW Differential 46.3 H Plt Count 181 MPV 9.7 Immature Gran % (Auto) Neut % (Auto) Lymph % (Auto) [place] % (Auto) Eos % (Auto) Baso % (Auto) Absolute Neuts (auto) Absolute Lymphs (auto) Total Counted PT INR APTT Activated Clotting Time 213 H Sodium Potassium Chloride Carbon Dioxide Anion Gap BUN Creatinine Estim Creat Clear Calc Est GFR (MDRD) Af Amer Est GFR (MDRD) Non-Af BUN/Creatinine Ratio Glucose Calcium Total Creatine Kinase 124 Troponin I Free T4 Free T3 pg/dL MRSA (PCR) 06/28/17 13:54 WBC RBC Hgb Hct MCV MCH MCHC RDW RDW Differential Plt Count MPV Immature Gran % (Auto) Neut % (Auto) Lymph % (Auto) [place] % (Auto) Eos % (Auto) Baso % (Auto) Absolute Neuts (auto) Absolute Lymphs (auto) Total Counted PT INR APTT Activated Clotting Time 202 H Sodium Potassium Chloride Carbon Dioxide Anion Gap BUN Creatinine Estim Creat Clear Calc Est GFR (MDRD) Af Amer Est GFR (MDRD) Non-Af BUN/Creatinine Ratio Glucose Calcium Total Creatine Kinase Troponin I Free T4 Free T3 pg/dL MRSA (PCR) Assessment/Plan Patient seen and examined independently. Data reviewed. I agree with the above note by the nurse practitioner. 1. Unstable angina Status post drug-eluting stent to the mid LAD. Continue with aspirin, Coreg, high intensity statin, lisinopril, Brilinta 2. Right groin hematoma Status post heart catheterization Pressure device in place Patient to remain on bedrest overnight. 3. Reduced ejection fraction Patient had an elevated BNP and some subtle pulmonary edema on chest x-ray. Patient appears to be resting comfortably at this time. Continue with oral Lasix, carvedilol and WESLEY inhibitor. 4. Ventricular bigeminy Stable at this time. 5. DVT prophylaxis We will add SCDs. Hold off on chemical prophylaxis given the right groin hematoma. Code Visit Inpatient E&M: 98574 Subs Hosp L2
--- NOTE | 2017-06-28 12:23 | NURSING ---
PT ARRIVES TO [facility] 204 FROM [facility]. RECEIVED REPORT FROM [facility] IN [facility]. UPON ARRIVAL TO ROOM PT DEVELOPED HEMATOMA TO RIGHT GROIN. MANUAL PRESSURE APPLIED. DR SOTO NOTIFIED
--- NOTE | 2017-06-28 12:32 | PN_ITS ---
Addendum entered and electronically signed by MALICK Bazzi 06/28/17 12:39: Code Visit Patient required PCI during cardiac catheterization and was subsequently transferred to ICU for post cath/intervention recovery. Patient will continue aspirin, statin, Brilinta, beta-mirna, WESLEY inhibitor. Original Note: <Nati Oropeza - Last Filed: 06/28/17 12:37> Patient Problems: Active and Suspected Problems Heart palpitations (Acute) Lower extremity edema (Acute) Shortness of breath (Acute) LV dysfunction (Acute) Subjective: Patient seen and examined. States he came to the emergency room due to swelling of feet at home. Denies chest pain, shortness of breath, palpitations. Patient to undergo cardiac catheterization due to echocardiogram findings. Patient agreeable to plan. - Physical Exam General: Alert, Oriented x3, Cooperative, No apparent distress HEENT: Atraumatic, PERRLA, EOMI, Normocephalic Neck: Supple, No JVD, Negative Carotid Bruits Lungs: Diminished, Rales Cardiovascular: Normal S1, Normal S2, No murmurs, - - A.fib, rate controlled. Abdomen: Bowel Sounds Present, Soft, Non Tender, Non-Distended Extremities: No clubbing, No cyanosis, Capillary Refill Less than 3 Seconds, - - Nonpitting edema bilateral feet/ankles Skin: No rashes, No breakdown Musculoskeletal: No Tenderness to Palpation of Joints or Extremities Neurological: Cranial nerves II-XII grossly intact, Neuro grossly intact Psych/Mental Status: Normal Affect, Appropriate Vital Signs Temp Pulse Resp BP Pulse Ox 98.7 F 84 18 119/54 L 98 06/28/17 09:28 06/28/17 10:59 06/28/17 09:28 06/28/17 09:28 06/28/17 09:28 Oxygen Delivery Method Room Air Weight: 80.1 kg Body Mass Index (BMI) 23.3 Intake and Output for Last 24 Hours 06/26/17 06/27/17 06/28/17 23:59 23:59 23:59 Intake Total 240 / 240 Output Total 550 / 550 2975 / 2975 Balance -310 / -310 -2975 / -2975 Laboratory Tests Past 24 Hrs 06/27/17 06/27/17 06/28/17 20:55 20:55 00:50 WBC RBC Hgb Hct MCV MCH MCHC RDW RDW Differential Plt Count MPV Immature Gran % (Auto) Neut % (Auto) Lymph % (Auto) [place] % (Auto) Eos % (Auto) Baso % (Auto) Absolute Neuts (auto) Absolute Lymphs (auto) Total Counted PT INR APTT Activated Clotting Time Sodium Potassium Chloride Carbon Dioxide Anion Gap BUN Creatinine Estim Creat Clear Calc Est GFR (MDRD) Af Amer Est GFR (MDRD) Non-Af BUN/Creatinine Ratio Glucose Calcium Troponin I 0.03 0.03 Free T4 1.11 Free T3 pg/dL 2.5 06/28/17 06/28/17 06/28/17 06:30 06:30 06:30 WBC 5.6 RBC 4.27 L Hgb 13.2 Hct 39.7 L MCV 93.0 MCH 30.9 MCHC 33.2 RDW 13.6 RDW Differential 46.4 H Plt Count 170 MPV 9.6 Immature Gran % (Auto) 0.200 Neut % (Auto) 63.9 Lymph % (Auto) 22.5 [place] % (Auto) 11.6 H Eos % (Auto) 1.1 Baso % (Auto) 0.7 Absolute Neuts (auto) 3.6 Absolute Lymphs (auto) 1.26 Total Counted Not Reportable PT 15.3 H INR 1.3 APTT 33.8 Activated Clotting Time Sodium 134 L Potassium 3.6 Chloride 100 Carbon Dioxide 25.0 Anion Gap 9 BUN 16 Creatinine 0.82 Estim Creat Clear Calc 78.49 Est GFR (MDRD) Af Amer 115 Est GFR (MDRD) Non-Af 95 BUN/Creatinine Ratio 19.5 Glucose 105 Calcium 8.4 L Troponin I 0.03 Free T4 Free T3 pg/dL 06/28/17 11:56 WBC RBC Hgb Hct MCV MCH MCHC RDW RDW Differential Plt Count MPV Immature Gran % (Auto) Neut % (Auto) Lymph % (Auto) [place] % (Auto) Eos % (Auto) Baso % (Auto) Absolute Neuts (auto) Absolute Lymphs (auto) Total Counted PT INR APTT Activated Clotting Time 186 H Sodium Potassium Chloride Carbon Dioxide Anion Gap BUN Creatinine Estim Creat Clear Calc Est GFR (MDRD) Af Amer Est GFR (MDRD) Non-Af BUN/Creatinine Ratio Glucose Calcium Troponin I Free T4 Free T3 pg/dL Assessment/Plan Active and Suspected Problems Heart palpitations (Acute) Lower extremity edema (Acute) Shortness of breath (Acute) LV dysfunction (Acute) 1. Acute CHF with reduced EF- Echo showed estimated ejection fraction of 40%, moderate global hypokinesis of the left ventricle, moderately enlarged left atrium, mild to moderate tricuspid valve insufficiency, moderate pulmonary hypertension with RVSP estimated to be 57 mmHg. Chest x-ray on admission with pulmonary congestion. Patient with minimal edema bilateral feet and ankles. Denies shortness of breath. Stable on room air. Continue Lasix 40 mg daily. Troponin negative. Dr. Quiroz, Cardiology consulted. Patient to undergo cardiac catheterization. 2. Ventricular bigeminy/Mobitz 1 secondary block-to undergo cardiac catheterization as noted above. Patient is asymptomatic. 3. Hypertension-stable, continue home regimen. 4. Subclinical hypothyroidism-TSH 4.8. T3-T4 normal. DVT prophylaxis-heparin subcu. This patient was seen by MALICK Bazzi under the supervision of Dr. Will. <Jamarcus Will - Last Filed: 06/28/17 16:00> - Physical Exam General: Alert, Cooperative, No apparent distress HEENT: Atraumatic, Normocephalic Lungs: Clear to auscultation, Normal air movement, No rhonchi, No wheeze Cardiovascular: Regular rate, Regular Rhythm, Normal S1, Normal S2 Abdomen: Bowel Sounds Present, Soft, Non Tender, Non-Distended Extremities: No cyanosis, No Calf Tenderness, - Skin: No rashes, No breakdown Musculoskeletal: No Tenderness to Palpation of Joints or Extremities Psych/Mental Status: Normal Affect, Appropriate Vital Signs Temp Pulse Resp BP Pulse Ox 37.4 C H 68 17 112/62 96 06/28/17 14:00 06/28/17 14:10 06/28/17 14:10 06/28/17 14:10 06/28/17 14:10 Oxygen Flow Rate 2 Oxygen Delivery Method Nasal Cannula Weight: 80.1 kg Body Mass Index (BMI) 23.3 Intake and Output for Last 24 Hours 06/26/17 06/27/17 06/28/17 23:59 23:59 23:59 Intake Total 240 / 240 Output Total 550 / 550 2975 / 2975 Balance -310 / -310 -2975 / -2975 Laboratory Tests Past 24 Hrs 06/27/17 06/27/1706/28/18 20:55 20:55 00:50 WBC RBC Hgb Hct MCV MCH MCHC RDW RDW Differential Plt Count MPV Immature Gran % (Auto) Neut % (Auto) Lymph % (Auto) [place] % (Auto) Eos % (Auto) Baso % (Auto) Absolute Neuts (auto) Absolute Lymphs (auto) Total Counted PT INR APTT Activated Clotting Time Sodium Potassium Chloride Carbon Dioxide Anion Gap BUN Creatinine Estim Creat Clear Calc Est GFR (MDRD) Af Amer Est GFR (MDRD) Non-Af BUN/Creatinine Ratio Glucose Calcium Total Creatine Kinase Troponin I 0.03 0.03 Free T4 1.11 Free T3 pg/dL 2.5 MRSA (PCR) 06/28/17 06/28/17 06/28/17 06:30 06:30 06:30 WBC 5.6 RBC 4.27 L Hgb 13.2 Hct 39.7 L MCV 93.0 MCH 30.9 MCHC 33.2 RDW 13.6 RDW Differential 46.4 H Plt Count 170 MPV 9.6 Immature Gran % (Auto) 0.200 Neut % (Auto) 63.9 Lymph % (Auto) 22.5 [place] % (Auto) 11.6 H Eos % (Auto) 1.1 Baso % (Auto) 0.7 Absolute Neuts (auto) 3.6 Absolute Lymphs (auto) 1.26 Total Counted Not Reportable PT 15.3 H INR 1.3 APTT 33.8 Activated Clotting Time Sodium 134 L Potassium 3.6 Chloride 100 Carbon Dioxide 25.0 Anion Gap 9 BUN 16 Creatinine 0.82 Estim Creat Clear Calc 78.49 Est GFR (MDRD) Af Amer 115 Est GFR (MDRD) Non-Af 95 BUN/Creatinine Ratio 19.5 Glucose 105 Calcium 8.4 L Total Creatine Kinase Troponin I 0.03 Free T4 Free T3 pg/dL MRSA (PCR) 06/28/17 06/28/17 06/28/17 11:56 12:30 12:37 WBC RBC Hgb Hct MCV MCH MCHC RDW RDW Differential Plt Count MPV Immature Gran % (Auto) Neut % (Auto) Lymph % (Auto) [place] % (Auto) Eos % (Auto) Baso % (Auto) Absolute Neuts (auto) Absolute Lymphs (auto) Total Counted PT INR APTT Activated Clotting Time 186 H 257 H Sodium Potassium Chloride Carbon Dioxide Anion Gap BUN Creatinine Estim Creat Clear Calc Est GFR (MDRD) Af Amer Est GFR (MDRD) Non-Af BUN/Creatinine Ratio Glucose Calcium Total Creatine Kinase Troponin I Free T4 Free T3 pg/dL MRSA (PCR) Negative 06/28/17 06/28/17 06/28/17 13:00 13:00 13:26 WBC 6.8 RBC 4.04 L Hgb 12.5 L Hct 37.7 L MCV 93.3 MCH 30.9 MCHC 33.2 RDW 13.5 RDW Differential 46.3 H Plt Count 181 MPV 9.7 Immature Gran % (Auto) Neut % (Auto) Lymph % (Auto) [place] % (Auto) Eos % (Auto) Baso % (Auto) Absolute Neuts (auto) Absolute Lymphs (auto) Total Counted PT INR APTT Activated Clotting Time 213 H Sodium Potassium Chloride Carbon Dioxide Anion Gap BUN Creatinine Estim Creat Clear Calc Est GFR (MDRD) Af Amer Est GFR (MDRD) Non-Af BUN/Creatinine Ratio Glucose Calcium Total Creatine Kinase 124 Troponin I Free T4 Free T3 pg/dL MRSA (PCR) 06/28/17 13:54 WBC RBC Hgb Hct MCV MCH MCHC RDW RDW Differential Plt Count MPV Immature Gran % (Auto) Neut % (Auto) Lymph % (Auto) [place] % (Auto) Eos % (Auto) Baso % (Auto) Absolute Neuts (auto) Absolute Lymphs (auto) Total Counted PT INR APTT Activated Clotting Time 202 H Sodium Potassium Chloride Carbon Dioxide Anion Gap BUN Creatinine Estim Creat Clear Calc Est GFR (MDRD) Af Amer Est GFR (MDRD) Non-Af BUN/Creatinine Ratio Glucose Calcium Total Creatine Kinase Troponin I Free T4 Free T3 pg/dL MRSA (PCR) Assessment/Plan Patient seen and examined independently. Data reviewed. I agree with the above note by the nurse practitioner. 1. Unstable angina * Status post drug-eluting stent to the mid LAD. * Continue with aspirin, Coreg, high intensity statin, lisinopril, Brilinta 2. Right groin hematoma * Status post heart catheterization * Pressure device in place * Patient to remain on bedrest overnight. 3. Reduced ejection fraction * Patient had an elevated BNP and some subtle pulmonary edema on chest x-ray. * Patient appears to be resting comfortably at this time. * Continue with oral Lasix, carvedilol and WESLEY inhibitor. 4. Ventricular bigeminy * Stable at this time. 5. DVT prophylaxis * We will add SCDs. Hold off on chemical prophylaxis given the right groin hematoma. Code Visit Inpatient E&M: 49430 Subs Hosp L2
[2017-06-28] MEDS: 0.9% Normal Saline 1,000 ML 150 ML IV (12:36)
--- NOTE | 2017-06-28 13:19 | PCM.CONS.C ---
Problem List (1) Lower extremity edema Status: Acute (2) Shortness of breath Status: Acute (3) Heart palpitations Status: Acute (4) LV dysfunction Status: Acute Reason for Consult Date of Consultation: 06/28/17 Reason for Consultation: Congestive heart failure, shortness of breath, LV dysfunction atrial fibrillation History of Present Illness: The patient is a 81 year old M nondiabetic, former smoker quit around 40 years ago, after one half pack per day for 10 years, positive hypertension, no hypercholesterolemia or previous coronary disease. Patient never been told he had congestive heart failure before this. Patient is fairly active, and denies any exertional chest pain, angina but had noticed recently palpitations particularly with laying on the left side. Over the last 2 weeks he has noted progressively worsening dyspnea on exertion, worsening lower extremity edema. Patient sought medical attention at [facility] ER where he was found to be in mild congestive heart failure with pulmonary vascular redistribution on his chest x-ray, evidence of lower extremity edema, and atrial fibrillation with rapid ventricular response. A 2D echocardiogram was performed which showed global moderate LV dysfunction with an EF around 40% and an RVSP of around 52 mmHg. The patient underwent a diagnostic coronary angiogram today to evaluate his LV dysfunction and to assess his coronary arteries prior to treatment with anticoagulation and subsequent DC cardioversion. This demonstrated a critical lesion in his mid LAD and underwent successful angioplasty and drug-eluting stenting receiving a 3.0X 20 Promus Synergy stent. His remaining coronary arteries had minimal nonobstructive disease and require no further evaluation or intervention. Patient is there have been told he had atrial fibrillation in the past and in fact is never seen a shank inspector. [] Past Medical History Allergies/Adverse Reactions: Allergies No Known Allergies Allergy (Verified 06/27/17 15:58) Home Medications: Ambulatory Orders Medication Instructions Recorded Amlodipine/Benazepril [Lotrel 1 capsule PO DAILY 06/27/17 10-20 MG Capsule] Surgical History: no surgical history Psychiatric History: No pertinent psych hx - *Family History Maternal History Items: No pertinent history Paternal History Items: No pertinent history Lives: Spouse/ Significant Other Smoking Status: Former smoker Tobacco Use: Non-smoker Alcohol: Rare Drugs: None Review of Systems - Review of Systems General: Denies: Fever, Night Sweats, Fatigue Cardiovascular: Reports: Shortness of Breath, Shortness of Breath with Exertion, Peripheral Edema, Palpitations. Denies: Chest Discomfort, Orthopnea, PND, Lightheadedness, Dizziness, Near Syncope, Syncope Respiratory: Denies: Cough, Sputum Production, Hemoptysis Gastrointestinal: Denies: Hematemesis, Hematochezia, Melena Genitourinary: Denies: Dysuria, Hematuria Skin: Denies: Rash Subjectve: Patient laying in bed, no acute distress. Objective: Vital Signs Temp Pulse Resp BP Pulse Ox 98.7 F 84 18 119/54 L 98 06/28/17 09:28 06/28/17 10:59 06/28/17 09:28 06/28/17 09:28 06/28/17 09:28 Oxygen Delivery Method Room Air Weight: 176 lb 9.444 oz Body Mass Index (BMI) 23.3 Intake and Output for Last 24 Hours 06/26/17 06/27/17 06/28/17 23:59 23:59 23:59 Intake Total 240 / 240 Output Total 550 / 550 2975 / 2975 Balance -310 / -310 -2975 / -2975 General: Awake, Alert, Oriented x 3 HEENT: PERRL, EOMI, Sclera Non Icteric Neck: Supple, Good ROM, No Lymph Node Enlargement Lungs: Clear to auscultation Cardiovascular: Irregular Rhythm, Normal S1, Normal S2, No Rubs, No Gallops Murmur Murmur: Grade 2/6, Holosystolic Vascular: No Carotid Bruits, Normal Femoral Pulses, Normal Radial Pulses, Normal Dorsalis Pedal Pulse, Normal Posterior Tibial Pulses Abdomen: Bowel Sounds Present, Soft, Non Tender, No HSM, No Organomegaly Extremities: No Cyanosis, No Clubbing, No edema Neurological: No Focal Motor or Sensory Deficit 06/27/17 20:55: Troponin I 0.03 06/28/17 00:50: Troponin I 0.03 06/28/17 06:30: Sodium 134 L, Potassium 3.6, Chloride 100, Carbon Dioxide 25.0, Anion Gap 9, BUN 16, Creatinine 0.82, Est GFR (MDRD) Af Amer 115, Est GFR (MDRD) Non-Af 95, BUN/Creatinine Ratio 19.5, Glucose 105, Calcium 8.4 L, Troponin I 0.03 06/28/17 06:30: WBC 5.6, RBC 4.27 L, Hgb 13.2, Hct 39.7 L, MCV 93.0, MCH 30.9, MCHC 33.2, RDW 13.6, RDW Differential 46.4 H, Plt Count 170, MPV 9.6, Immature Gran % (Auto) 0.200, Neut % (Auto) 63.9, Lymph % (Auto) 22.5, [place] % (Auto) 11.6 H, Eos % (Auto) 1.1, Baso % (Auto) 0.7, Absolute Neuts (auto) 3.6, Total Counted Not Reportable 06/28/17 06:30: PT 15.3 H, INR 1.3, APTT 33.8 Rhythm: EKG: Normal sinus rhythm with first-degree AV block, rare PVC. ECHO: As above Stress Test: Cardiac Cath: As above PCI: CT Surgery: Holter monitor: EPS: PPM: CXR: Chest CT Scan: Assessment/Plan 1. LV dysfunction: The patient is found to have at least moderate LV dysfunction by echocardiogram and confirmed by catheterization today. The patient had a critical lesion in his mid LAD which was treated successfully with angioplasty and stenting with a drug-eluting stent. His remaining coronary arteries have minimal nonobstructive disease and require no additional evaluation or intervention. The patient will be started on Coreg 3.125 mg p.o. twice daily for heart rate and afterload reduction, as well as lisinopril 10 mg p.o. daily for afterload reduction. In addition he will continue aspirin and Brilinta going forward. We will continue baby aspirin and Brilinta at least for 2-3 weeks at which time we will add Coumadin therapy for his atrial fibrillation. The patient had a small hematoma post procedure, so I am hesitant to start him on anticoagulation at this time until this is been completely healed. Once the patient has been resynchronized with DC cardioversion in 6 weeks time, and after he is completed cardiac rehab, we will repeat his echocardiogram. In addition we will discontinue his IV Lasix as he appears to have reached his dry weight and is not requiring supplemental O2, and is edema has improved. Start him on Lasix 40 mill grams p.o. daily for diuretic control. 2. Hyperlipidemia: Continue Lipitor therapy. Repeat lipid profile in 6 weeks time. Code Visit Inpatient E&M: 97296 Init Hosp L2
[2017-06-28 13:22] LABS: Hematocrit 37.7 % (40-54); Hemoglobin 12.5 g/dl (13.0-16.5); Mean Corp Hgb Conc 33.2 g/gl (32-36); Mean Corpuscular Hgb 30.9 pg (27.0-32.0); Mean Corpuscular Volume 93.3 fL (80-94); Mean Platelet Vol. 9.7 fl (6.2-12.0); Platelet Count 181 K/mm3 (150-450); RBC Distribution Width CV 13.5 % (11.6-14.6); RBC Distribution Width SD 46.3 fl (35.1-43.9); Red Blood Count 4.04 M/mm3 (4.6-6.2); White Blood Count 6.8 K/mm3 (4.4-11.0)
[2017-06-28 13:25] LABS: Scan Indicated on CBC? Y/N NO
[2017-06-28 13:39] LABS: CPK Total, Creatine Kinase 124 U/L (39-308)
[2017-06-28 14:12] LABS: M R Staph aureus DNA By PCR Negative (Negative); Probe Check PASS; Specimen Processing Control PASS
--- NOTE | 2017-06-28 14:14 | CL.I_ITS ---
Patient Name: ZBIGNIEW CHAPIN Study Date: 06/28/2017 Performing: Perico Quiroz MD Ht: 73 inches 185 cm : 1935 Wt: 176.6 lbs 80 kg Age: 81 Gender: male BSA: 2.04 PROCEDURE(S) PERFORMED AJ68-HOR/COR/LV IL28-IKT W OR WO PTCA, SINGLE CORONARY ARTERY CLINICAL PROFILE AND CO-MORBIDITIES INDICATIONS: Acute Coronary Syndrome, Unstable Angina Stress/Imaging Stress/Image Study Performed: No Angina Classification Anginal Classification w/in 2 Weeks: CCS III CAD Presentations: Other: dyspnea on exetion, palpitations, new CHF/LV dysfunction. 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 Minimal plaque shift into DIAG#1. No PTCA of DIAG#1 performed. RECOMMENDATIONS Referred for immediate PCI Highly recommend quitting all tobacco products Follow up with primary electrical and instrumentation mechanic Risk factor modification ASA Indefinitley Plavix for at least 12 months Routine post interventional care Refer for Outpatient Cardiac Rehab Manual sheath removal per protocol Follow up with Dr. Quiroz DESCRIPTION OF PROCEDURE The patient arrived to the procedure lab. The risks and benefits of the procedure as well as a full d escription of our services here and lack of surgical backup were fully explained to the patient and/o r their significant other prior to the catheterization. The Timeout was completed, verifying the margaux ect patient and procedure. The patient's procedural site was prepped and draped in the usual fashion. Local anesthetic was given subcutaneously to right groin region with Lidocaine 2%. Using a modified Seldinger technique, arterial access was obtained via the right femoral artery, a 4Fr 45cm sheath was inserted. Left Coronary Artery selective angiography was performed in multiple views using a 4 Fr. JL5 catheter. Right Coronary Artery selective angiography was then performed in multiple views using a 4 Fr. 3DRC catheter. Left Ventriculography was performed in DICKSON projection using a 4 Fr. Pigtail ca theterThe images were reviewed and options discussed. A decision was then made to proceed with an Int ervention, IVUS or other adjunct procedure. Arterial sheath was exchanged for a 6 Fr Sheath 6f EBU 3.75 Guide catheter was inserted and engaged i nto the LCA. BMW Guide wire was advanced to the LAD. Angiogram performed pre balloon dilatation. 2.0x 12 Emerge Balloon catheter was advanced across lesion in the LAD, mid. PTCA balloon inflated at 8 jewell s for 15 secs Angiogram performed post balloon dilatation. 3.0 x 20 synergy Drug Eluting stent was ad vanced across the lesion in the LAD, mid. Angiogram performed post stent deployment.. . The arterial sheath was sutured in place and capped. CORONARY ANGIOGRAPHY DOMINANCE: Left Dominant LEFT HEART ASSESSMENT Left Ventricular Ejection Fraction: by LV Gram 40-45 % Depressed Left Ventricular systolic function Elevated Left Ventricular End Diastolic Pressure Global Hypokinesis - Moderate LEFT MAIN: Mild calcification, 30 % Stenosis LEFT ANTERIOR DECENDING ARTERY: MID LAD: 85 % Stenosis DIAGONAL 1: Ostial - 30 % Stenosis CIRCUMFLEX ARTERY: Mild luminal irregularities less than 30% RIGHT CORONARY ARTERY: Angiographically normal INTERVENTION INFORMATION LESION SITE: LAD (Mid) Lesion Complexity: High/C, lesion at bifurcation: Yes, thrombus present: No, lesion length: 20 mm, cu lprit lesion: Yes Pre Stenosis: 85 % Pre intervention MELANI flow: 3 PROCEDURE: Drug Eluting Stent with pre dilatation. Post Stenosis: 0 % Post intervention MELANI flow: 3 Lesion Devices: Grace .014 BMW Garden Straight 190cm Medtronic 6 Fr EBU3.75 100cm Guide Catheter Nicho Sci EMERGE MR 2.00x12 BALLOON Nicho Sci Synergy MR GRACIE 3.00x20 COMPLICATIONS No Complications PROCEDURE MEDICATIONS Oxygen: 2 L/min via nasal cannula Heparin 6000 unit(s) IV 06/28/2017 11:42:09 Heparin 4000 unit(s) IV 06/28/2017 11:59:49 Nitro 200 mcg IC 06/28/2017 11:43:33 Nitro 200 mcg IC 06/28/2017 11:43:33 IV Fluids: .9 NaCl increased to wide open ml/hr 06/28/2017 11:41:29 IV Fluids: .9 NaCl decreased to 150 ml/hr 06/28/2017 11:52:15 SUMMARY OF HEMODYNAMIC DATA Time AIR REST ECG 11:16:07 AO 137/66 (91) SA 11:31:34 LV 130/-14, 6 11:39:09 LVp 134/-16, 11 11:39:15 AOp 135/68 (87) 11:39:20 Signed By Perico Quiroz MD On 06/28/2017 14:13:37 Perico Quiroz MD
[2017-06-28 15:31] LABS: ACT Activated Clotting Time 213 sec (74-137)
[2017-06-28 15:31] LABS: ACT Activated Clotting Time 202 sec (74-137)
[2017-06-28 15:31] LABS: ACT Activated Clotting Time 257 sec (74-137)
[2017-06-28 18:24] LABS: CPK Total, Creatine Kinase 118 U/L (39-308)
[2017-06-28] MEDS: TICAGRELOR 90 MG TABLET PO (22:05)
[2017-06-28] MEDS: Atorvastatin Calcium 80 MG Tablet PO (22:05)
[2017-06-28 23:38] LABS: CPK Total, Creatine Kinase 127 U/L (39-308)
[2017-06-29] VITALS (19 sets, daily range): BP systolic 94–134; BP diastolic 47–74; PULSE 57–82; RESP 16–20; TEMP 36.6–37.2; O2SAT 89–96
[2017-06-29 04:43] LABS: Hemoglobin 12.5 g/dl (13.0-16.5); Mean Corp Hgb Conc 33.8 g/gl (32-36); Mean Corpuscular Hgb 31.7 pg (27.0-32.0); Mean Corpuscular Volume 93.9 fL (80-94); Mean Platelet Vol. 9.5 fl (6.2-12.0); Platelet Count 187 K/mm3 (150-450); RBC Distribution Width CV 13.2 % (11.6-14.6); RBC Distribution Width SD 44.1 fl (35.1-43.9); Red Blood Count 3.94 M/mm3 (4.6-6.2); Scan Indicated on CBC? Y/N NO; White Blood Count 8.7 K/mm3 (4.4-11.0)
[2017-06-29 04:59] LABS: Anion Gap 9 (5-15); BUN 19 mg/dL (7-18); BUN/Creat Ratio 24.8 RATIO (10-20); Calcium,Total 8.1 mg/dL (8.5-10.1); Chloride 102 mmol/L (98-107); Creatinine, Serum 0.76 mg/dL (0.70-1.30); EST Glomerular Filtration Rate 103 mL/min (>60); Est Glom Filt Rate - Afr Amer 125 mL/min (>60); Estimated Creatinine Clearance 64.36 ml/min; Glucose 108 mg/dL (74-106); Potassium 3.8 mmol/L (3.5-5.1); Sodium Level 137 mmol/L (136-145)
--- NOTE | 2017-06-29 05:07 | NURSING ---
Patient weighted this a.m with femstop on.
--- NOTE | 2017-06-29 05:55 | EKG12_ITS ---
Test Reason : AM EKG Blood Pressure : / mmHG Vent. Rate : 081 BPM Atrial Rate : 288 BPM P-R Int : 000 ms QRS Dur : 104 ms QT Int : 416 ms P-R-T Axes : 000 -16 026 degrees QTc Int : 483 ms Atrial fibrillation with CVR,PVC Nonspecific T wave abnormality Prolonged QT Abnormal ECG When compared with ECG of 28-JUN-2017 12:21, MANUAL COMPARISON REQUIRED, DATA IS UNCONFIRMED Confirmed by KENDALL SOTO ([id number]), field map editor MONTSE REESE ([id number]) on 07/04/2017 1:56:18 PM Referred By: BRITTANY Confirmed By:KENDALL SOTO
[2017-06-29] MEDS: TICAGRELOR 90 MG TABLET PO ×2 (10:16→21:54)
[2017-06-29] MEDS: Carvedilol 3.125 MG TABLET PO ×2 (10:16→21:54)
[2017-06-29] MEDS: Aspirin E.C. 81 MG Tablet PO (10:16)
[2017-06-29] MEDS: Lisinopril 20 MG Tablet PO (10:17)
[2017-06-29] MEDS: Furosemide 40 MG Tablet PO (10:17)
--- NOTE | 2017-06-29 10:21 | PCM.PN.HOSP ---
Patient Problems: Active and Suspected Problems Heart palpitations (Acute) Lower extremity edema (Acute) Shortness of breath (Acute) LV dysfunction (Acute) Subjective: Patient stating that he is feeling feeble after being on bedrest all this time. States that he does not feel stronger after his cardiac stent and ask why that is. Vitals/I&O's: Vital Signs Temp Pulse Resp BP Pulse Ox 36.6 C 72 17 94/53 L 94 06/29/17 00:00 06/29/17 06:00 06/29/17 06:00 06/29/17 06:00 06/29/17 06:00 Oxygen Flow Rate 2 Oxygen Delivery Method Room Air Weight: 79.9 kg Body Mass Index (BMI) 23.3 Intake and Output for Last 24 Hours 06/27/17 06/28/17 06/29/17 23:59 23:59 23:59 Intake Total 240 / 240 824 / 824 180 / 180 Output Total 550 / 550 3225 / 3225 500 / 500 Balance -310 / -310 -2401 / -2401 -320 / -320 General: Alert, Cooperative, No apparent distress HEENT: Atraumatic, Normocephalic Neck: No Nodes, Thyroid Normal Size and Texture Lungs: Clear to auscultation, Normal air movement, No rhonchi, No wheeze Cardiovascular: Regular rate, Regular Rhythm, Normal S1, Normal S2, No murmurs Abdomen: Bowel Sounds Present, Soft, Non Tender, Non-Distended, No Hepato-splenomegaly Extremities: No edema, No Calf Tenderness Laboratory Results 06/28/17 11:56: Activated Clotting Time 186 H 06/28/17 12:30: MRSA (PCR) Negative 06/28/17 12:37: Activated Clotting Time 257 H 06/28/17 13:00: Total Creatine Kinase 124 06/28/17 13:00: WBC 6.8, RBC 4.04 L, Hgb 12.5 L, Hct 37.7 L, MCV 93.3, MCH 30.9, MCHC 33.2, RDW 13.5, RDW Differential 46.3 H, Plt Count 181, MPV 9.7 06/28/17 13:26: Activated Clotting Time 213 H 06/28/17 13:54: Activated Clotting Time 202 H 06/28/17 17:25: Total Creatine Kinase 118 06/28/17 23:10: Total Creatine Kinase 127 06/29/17 04:30: WBC 8.7, RBC 3.94 L, Hgb 12.5 L, Hct 37.0 L, MCV 93.9, MCH 31.7, MCHC 33.8, RDW 13.2, RDW Differential 44.1 H, Plt Count 187, MPV 9.5 06/29/17 04:30: Sodium 137, Potassium 3.8, Chloride 102, Carbon Dioxide 26.0, Anion Gap 9, BUN 19 H, Creatinine 0.76, Estim Creat Clear Calc 64.36, Est GFR (MDRD) Af Amer 125, Est GFR (MDRD) Non-Af 103, BUN/Creatinine Ratio 24.8 H, Glucose 108 H, Calcium 8.1 L Current Medications Acetaminophen (Tylenol) 650 mg PO Q6H PRN PRN PRN Reason: Mild Pain (1-3)/Temp > 100.7 F Aspirin (Ecotrin) 81 mg PO DAILY@0800 [facility] Last Admin: 06/29/17 10:16 Dose: 81 mg Atorvastatin Calcium (Lipitor) 80 mg PO QHS [facility] Last Admin: 06/28/17 22:05 Dose: 80 mg Atropine Sulfate () 0.5 mg IV UD PRN PRN Reason: HR <50 bpm Carvedilol (Coreg) 3.125 mg PO BID [facility] Last Admin: 06/29/17 10:16 Dose: 3.125 mg Diazepam (Valium) 5 mg PO Q6H PRN PRN PRN Reason: BACK SPASMS/ANXIETY Furosemide (Lasix) 40 mg PO DAILY [facility] Last Admin: 06/29/17 10:17 Dose: 40 mg Sodium Chloride () 1,000 mls @ 15 mls/hr IV .Q48H [facility] PRN Reason: KVO Last Admin: 06/28/17 11:49 Dose: Not Given Lisinopril (Zestril) 20 mg PO DAILY [facility] Last Admin: 06/29/17 10:17 Dose: 20 mg Magnesium Hydroxide (Milk Of Magnesia) 30 ml PO DAILY PRN PRN Reason: Constipation Metoclopramide HCl (Reglan) 5 mg IV Q6H PRN PRN Reason: NAUSEA/VOMITING Pot[facility] Admin: 06/29/17 10:16 Dose: 20 meq Sodium Chloride () 5 - 30 ml IV UD PRN PRN Reason: SALINE FLUSH Last Admin: 06/28/17 05:57 Dose: 20 ml Sodium Chloride () 500 ml IV BOLUS PRN PRN Reason: VASO-VAGAL PROTOCOL Ticagrelor (Brilinta) 90 mg PO BID [facility] Last Admin: 06/29/17 10:16 Dose: 90 mg Assessment/Plan Active and Suspected Problems Heart palpitations (Acute) Lower extremity edema (Acute) Shortness of breath (Acute) LV dysfunction (Acute) Patient seen and examined independently. Data reviewed. I agree with the above note by the nurse practitioner. 1. Unstable angina Status post drug-eluting stent to the mid LAD. Continue with aspirin, Coreg, high intensity statin, lisinopril, Brilinta 2. Right groin hematoma Status post heart catheterization Off of bedrest. 3. Heart failure with reduced ejection fraction Patient had an elevated BNP and some subtle pulmonary edema on chest x-ray. Patient appears to be resting comfortably at this time. Continue with oral Lasix, carvedilol and WESLEY inhibitor. 4. Ventricular bigeminy Stable at this time. 5. DVT prophylaxis We will add SCDs. Hold off on chemical prophylaxis given the right groin hematoma. Per cardiology, patient to be transferred to the progressive care unit and monitored overnight and if does well then could be potentially discharged on 06/30. Code Visit Inpatient E&M: [id number] [facility] Hosp L2
--- NOTE | 2017-06-29 10:24 | PN_ITS ---
Patient Problems: Active and Suspected Problems Heart palpitations (Acute) Lower extremity edema (Acute) Shortness of breath (Acute) LV dysfunction (Acute) Subjective: Patient stating that he is feeling feeble after being on bedrest all this time. States that he does not feel stronger after his cardiac stent and ask why that is. Vitals/I&O's: Vital Signs Temp Pulse Resp BP Pulse Ox 36.6 C 72 17 94/53 L 94 06/29/17 00:00 06/29/17 06:00 06/29/17 06:00 06/29/17 06:00 06/29/17 06:00 Oxygen Flow Rate 2 Oxygen Delivery Method Room Air Weight: 79.9 kg Body Mass Index (BMI) 23.3 Intake and Output for Last 24 Hours 06/27/17 06/28/17 06/29/17 23:59 23:59 23:59 Intake Total 240 / 240 824 / 824 180 / 180 Output Total 550 / 550 3225 / 3225 500 / 500 Balance -310 / -310 -2401 / -2401 -320 / -320 General: Alert, Cooperative, No apparent distress HEENT: Atraumatic, Normocephalic Neck: No Nodes, Thyroid Normal Size and Texture Lungs: Clear to auscultation, Normal air movement, No rhonchi, No wheeze Cardiovascular: Regular rate, Regular Rhythm, Normal S1, Normal S2, No murmurs Abdomen: Bowel Sounds Present, Soft, Non Tender, Non-Distended, No Hepato- splenomegaly Extremities: No edema, No Calf Tenderness Laboratory Results 06/28/17 11:56: Activated Clotting Time 186 H 06/28/17 12:30: MRSA (PCR) Negative 06/28/17 12:37: Activated Clotting Time 257 H 06/28/17 13:00: Total Creatine Kinase 124 06/28/17 13:00: WBC 6.8, RBC 4.04 L, Hgb 12.5 L, Hct 37.7 L, MCV 93.3, MCH 30.9 , MCHC 33.2, RDW 13.5, RDW Differential 46.3 H, Plt Count 181, MPV 9.7 06/28/17 13:26: Activated Clotting Time 213 H 06/28/17 13:54: Activated Clotting Time 202 H 06/28/17 17:25: Total Creatine Kinase 118 06/28/17 23:10: Total Creatine Kinase 127 06/29/17 04:30: WBC 8.7, RBC 3.94 L, Hgb 12.5 L, Hct 37.0 L, MCV 93.9, MCH 31.7 , MCHC 33.8, RDW 13.2, RDW Differential 44.1 H, Plt Count 187, MPV 9.5 06/29/17 04:30: Sodium 137, Potassium 3.8, Chloride 102, Carbon Dioxide 26.0, Anion Gap 9, BUN 19 H, Creatinine 0.76, Estim Creat Clear Calc 64.36, Est GFR ( MDRD) Af Amer 125, Est GFR (MDRD) Non-Af 103, BUN/Creatinine Ratio 24.8 H, Glucose 108 H, Calcium 8.1 L Current Medications Acetaminophen (Tylenol) 650 mg PO Q6H PRN PRN PRN Reason: Mild Pain (1-3)/Temp > 100.7 F Aspirin (Ecotrin) 81 mg PO DAILY@0800 [facility] Last Admin: 06/29/17 10:16 Dose: 81 mg Atorvastatin Calcium (Lipitor) 80 mg PO QHS [facility] Last Admin: 06/28/17 22:05 Dose: 80 mg Atropine Sulfate () 0.5 mg IV UD PRN PRN Reason: HR <50 bpm Carvedilol (Coreg) 3.125 mg PO BID [facility] Last Admin: 06/29/17 10:16 Dose: 3.125 mg Diazepam (Valium) 5 mg PO Q6H PRN PRN PRN Reason: BACK SPASMS/ANXIETY Furosemide (Lasix) 40 mg PO DAILY [facility] Last Admin: 06/29/17 10:17 Dose: 40 mg Sodium Chloride () 1,000 mls @ 15 mls/hr IV .Q48H [facility] PRN Reason: KVO Last Admin: 06/28/17 11:49 Dose: Not Given Lisinopril (Zestril) 20 mg PO DAILY [facility] Last Admin: 06/29/17 10:17 Dose: 20 mg Magnesium Hydroxide (Milk Of Magnesia) 30 ml PO DAILY PRN PRN Reason: Constipation Metoclopramide HCl (Reglan) 5 mg IV Q6H PRN PRN Reason: NAUSEA/VOMITING Pot[facility] Admin: 06/29/17 10:16 Dose: 20 meq Sodium Chloride () 5 - 30 ml IV UD PRN PRN Reason: SALINE FLUSH Last Admin: 06/28/17 05:57 Dose: 20 ml Sodium Chloride () 500 ml IV BOLUS PRN PRN Reason: VASO-VAGAL PROTOCOL Ticagrelor (Brilinta) 90 mg PO BID [facility] Last Admin: 06/29/17 10:16 Dose: 90 mg Assessment/Plan Active and Suspected Problems Heart palpitations (Acute) Lower extremity edema (Acute) Shortness of breath (Acute) LV dysfunction (Acute) Patient seen and examined independently. Data reviewed. I agree with the above note by the nurse practitioner. 1. Unstable angina * Status post drug-eluting stent to the mid LAD. * Continue with aspirin, Coreg, high intensity statin, lisinopril, Brilinta 2. Right groin hematoma * Status post heart catheterization * Off of bedrest. 3. Heart failure with reduced ejection fraction * Patient had an elevated BNP and some subtle pulmonary edema on chest x-ray. * Patient appears to be resting comfortably at this time. * Continue with oral Lasix, carvedilol and WESLEY inhibitor. 4. Ventricular bigeminy * Stable at this time. 5. DVT prophylaxis * We will add SCDs. Hold off on chemical prophylaxis given the right groin hematoma. Per cardiology, patient to be transferred to the progressive care unit and monitored overnight and if does well then could be potentially discharged on . Code Visit Inpatient E&M: 43123 Subs Hosp L2
--- NOTE | 2017-06-29 10:47 | PN.CARD_ITS ---
Subjectve: Patient did well yesterday despite hematoma during sheath pull. Hematoma size approximately 2 cm X2 centimeters, but hemoglobin stable, creatinine within normal limits. Telemetry showed atrial fibrillation with controlled ventricular response. CKs were negative. EKG unchanged. Objective: Vital Signs Temp Pulse Resp BP Pulse Ox 97.8 F 72 17 94/53 L 94 06/29/17 00:00 06/29/17 06:00 06/29/17 06:00 06/29/17 06:00 06/29/17 06:00 Oxygen Flow Rate 2 Oxygen Delivery Method Room Air Weight: 176 lb 2.389 oz Body Mass Index (BMI) 23.3 Intake and Output for Last 24 Hours 06/27/17 06/28/17 06/29/17 23:59 23:59 23:59 Intake Total 240 / 240 824 / 824 180 / 180 Output Total 550 / 550 3225 / 3225 500 / 500 Balance -310 / -310 -2401 / -2401 -320 / -320 General: Awake, Alert, Oriented x 3 HEENT: PERRL, EOMI, Sclera Non Icteric Neck: Supple, Good ROM, No Lymph Node Enlargement Lungs: Clear to auscultation Cardiovascular: Irregular Rhythm, Normal S1, Normal S2, No Murmurs, No Rubs, No Gallops Vascular: No Carotid Bruits, Normal Femoral Pulses, Normal Radial Pulses, Normal Dorsalis Pedal Pulse, Normal Posterior Tibial Pulses Abdomen: Bowel Sounds Present, Soft, Non Tender, No HSM, No Organomegaly Extremities: No Cyanosis, No Clubbing, No edema Neurological: No Focal Motor or Sensory Deficit 06/28/17 13:00: WBC 6.8, RBC 4.04 L, Hgb 12.5 L, Hct 37.7 L, MCV 93.3, MCH 30.9 , MCHC 33.2, RDW 13.5, RDW Differential 46.3 H, Plt Count 181, MPV 9.7 06/29/17 04:30: WBC 8.7, RBC 3.94 L, Hgb 12.5 L, Hct 37.0 L, MCV 93.9, MCH 31.7 , MCHC 33.8, RDW 13.2, RDW Differential 44.1 H, Plt Count 187, MPV 9.5 06/29/17 04:30: Sodium 137, Potassium 3.8, Chloride 102, Carbon Dioxide 26.0, Anion Gap 9, BUN 19 H, Creatinine 0.76, Est GFR (MDRD) Af Amer 125, Est GFR ( MDRD) Non-Af 103, BUN/Creatinine Ratio 24.8 H, Glucose 108 H, Calcium 8.1 L Rhythm: EKG: ECHO: Stress Test: Cardiac Cath: PCI: CT Surgery: Holter monitor: EPS: PPM: CXR: Chest CT Scan: Assessment/Plan 1. LV dysfunction: The patient is found to have at least moderate LV dysfunction by echocardiogram and confirmed by catheterization today. The patient had a critical lesion in his mid LAD which was treated successfully with angioplasty and stenting with a drug-eluting stent. His remaining coronary arteries have minimal nonobstructive disease and require no additional evaluation or intervention. The patient will be started on Coreg 3.125 mg p.o. twice daily for heart rate and afterload reduction, as well as lisinopril 10 mg p.o. daily for afterload reduction. In addition he will continue aspirin and Brilinta going forward. We will continue baby aspirin and Brilinta at least for 2-3 weeks at which time we will add Coumadin therapy for his atrial fibrillation. The patient had a small hematoma post procedure, so I am hesitant to start him on anticoagulation at this time until this is been completely healed. Hematoma size approximately 2 cm X2 centimeters, and this morning is soft, no bruits, and moderate ecchymosis. Nontender. Once the patient has been resynchronized with DC cardioversion in 6 weeks time, and after he is completed cardiac rehab, we will repeat his echocardiogram. In addition we will discontinue his IV Lasix as he appears to have reached his dry weight and is not requiring supplemental O2, and is edema has improved. Start him on Lasix 40 mill grams p.o. daily for diuretic control. 2. Hyperlipidemia: Continue Lipitor therapy. Repeat lipid profile in 6 weeks time. 3. Patient may be downgraded to PCU. Plan for discharge tomorrow. Code Visit Inpatient E&M: 33118 Subs Hosp L2
[2017-06-29] MEDS: Atorvastatin Calcium 80 MG Tablet PO (21:54)
[2017-06-30 03:02] VITALS: PULSE 73
[2017-06-30 03:40] VITALS: BP 123/63; PULSE 80; RESP 16; TEMP 36.4; O2SAT 97
--- NOTE | 2017-06-30 05:55 | EKG12_ITS ---
Test Reason : AM EKG Blood Pressure : / mmHG Vent. Rate : 081 BPM Atrial Rate : 081 BPM P-R Int : 280 ms QRS Dur : 098 ms QT Int : 410 ms P-R-T Axes : 083 -12 038 degrees QTc Int : 476 ms Sinus rhythm with 1st degree A-V block with occasional Premature ventricular complexes and Premature atrial complexes Nonspecific T wave abnormality Prolonged QT Abnormal ECG When compared with ECG of 29-JUN-2017 05:07, MANUAL COMPARISON REQUIRED, DATA IS UNCONFIRMED Confirmed by KENDALL SOTO ([id number]), communications editor MONTSE REESE ([id number]) on 07/04/2017 2:27:18 PM Referred By: YANG Confirmed By:KENDALL SOTO
[2017-06-30 07:00] VITALS: PULSE 82
[2017-06-30 07:20] VITALS: O2SAT 96
[2017-06-30 07:30] LABS: Anion Gap 6 (5-15); BUN 25 mg/dL (7-18); BUN/Creat Ratio 30.1 RATIO (10-20); Calcium,Total 8.1 mg/dL (8.5-10.1); Chloride 105 mmol/L (98-107); Creatinine, Serum 0.83 mg/dL (0.70-1.30); EST Glomerular Filtration Rate 94 mL/min (>60); Est Glom Filt Rate - Afr Amer 114 mL/min (>60); Estimated Creatinine Clearance 71.82 ml/min; Glucose 108 mg/dL (74-106); Potassium 4.2 mmol/L (3.5-5.1); Sodium Level 138 mmol/L (136-145)
[2017-06-30 09:25] VITALS: BP 128/65; PULSE 66; RESP 16; TEMP 36.9; O2SAT 96
[2017-06-30] MEDS: Furosemide 40 MG Tablet PO (09:27)
[2017-06-30] MEDS: Lisinopril 20 MG Tablet PO (09:27)
[2017-06-30] MEDS: TICAGRELOR 90 MG TABLET PO (09:27)
[2017-06-30] MEDS: Carvedilol 3.125 MG TABLET PO (09:27)
[2017-06-30] MEDS: Aspirin E.C. 81 MG Tablet PO (09:27)
[2017-06-30 10:59] VITALS: PULSE 68
--- NOTE | 2017-06-30 13:22 | PN_ITS ---
Patient Problems: Active and Suspected Problems Heart palpitations (Acute) Lower extremity edema (Acute) Shortness of breath (Acute) LV dysfunction (Acute) Subjective: No new complaints. Anxious to get home. Vitals/I&O's: Vital Signs Temp Pulse Resp BP Pulse Ox 36.9 C 68 16 128/65 H 96 06/30/17 09:25 06/30/17 10:59 06/30/17 09:25 06/30/17 09:25 06/30/17 09:25 Oxygen Flow Rate 2 Oxygen Delivery Method Room Air Weight: 74 kg Body Mass Index (BMI) 23.3 Intake and Output for Last 24 Hours 06/28/17 06/29/17 06/30/17 23:59 23:59 23:59 Intake Total 824 / 824 660 / 660 Output Total 3225 / 3225 500 / 500 Balance -2401 / -2401 160 / 160 General: Alert, Cooperative, No apparent distress HEENT: Atraumatic, Normocephalic Lungs: Clear to auscultation, Normal air movement, No rhonchi, No wheeze Cardiovascular: Regular rate, Regular Rhythm, Normal S1, Normal S2, No murmurs Abdomen: Bowel Sounds Present, Soft, Non Tender, Non-Distended, No Hepato- splenomegaly Laboratory Results 06/30/17 06:45: Sodium 138, Potassium 4.2, Chloride 105, Carbon Dioxide 27.0, Anion Gap 6, BUN 25 H, Creatinine 0.83, Estim Creat Clear Calc 71.82, Est GFR ( MDRD) Af Amer 114, Est GFR (MDRD) Non-Af 94, BUN/Creatinine Ratio 30.1 H, Glucose 108 H, Calcium 8.1 L Current Medications Acetaminophen (Tylenol) 650 mg PO Q6H PRN PRN PRN Reason: Mild Pain (1-3)/Temp > 100.7 F Aspirin (Ecotrin) 81 mg PO DAILY@0800 [facility] Last Admin: 06/30/17 09:27 Dose: 81 mg Atorvastatin Calcium (Lipitor) 80 mg PO QHS [facility] Last Admin: 06/29/17 21:54 Dose: 80 mg Atropine Sulfate () 0.5 mg IV UD PRN PRN Reason: HR <50 bpm Carvedilol (Coreg) 3.125 mg PO BID [facility] Last Admin: 06/30/17 09:27 Dose: 3.125 mg Diazepam (Valium) 5 mg PO Q6H PRN PRN PRN Reason: BACK SPASMS/ANXIETY Furosemide (Lasix) 40 mg PO DAILY [facility] Last Admin: 06/30/17: Dose: 40 mg Lisinopril (Zestril) 20 mg PO DAILY [facility] Last Admin: 06/30/17: Dose: 20 mg Magnesium Hydroxide (Milk Of Magnesia) 30 ml PO DAILY PRN PRN Reason: Constipation Metoclopramide HCl (Reglan) 5 mg IV Q6H PRN PRN Reason: NAUSEA/VOMITING Potassium Chloride (K-Dur) 20 meq PO DAILYCM [facility] Last Admin: 06/30/17 Dose: 20 meq Sodium Chloride () 5 - 30 ml IV UD PRN PRN Reason: SALINE FLUSH Ticagrelor (Brilinta) 90 mg PO BID [facility] Last Admin: 06/30/17 Dose: 90 mg Assessment/Plan Active and Suspected Problems Heart palpitations (Acute) Lower extremity edema (Acute) Shortness of breath (Acute) LV dysfunction (Acute) 1. Unstable angina * Status post drug-eluting stent to the mid LAD. * Continue with aspirin, Coreg, high intensity statin, lisinopril, Brilinta * Patient continue with baby aspirin and Brilinta for at least 2-3 weeks. At which time Coumadin will be added for the atrial fibrillation. 2. Right groin hematoma * Status post heart catheterization * Off of bedrest. 3. Heart failure with reduced ejection fraction * Patient had an elevated BNP and some subtle pulmonary edema on chest x-ray. * Patient appears to be resting comfortably at this time. * Continue with oral Lasix, carvedilol and WESLEY inhibitor. 4. Ventricular bigeminy * Stable at this time. 5. DVT prophylaxis * We will add SCDs. Hold off on chemical prophylaxis given the right groin hematoma. 6. Atrial fibrillation * Coumadin to be added in 3 weeks or so. Patient to follow-up with cardiology.
--- NOTE | 2017-06-30 13:24 | PCM.DC ---
- Discharge Diagnoses Current Active Problems: Current Active and Chronic Problems Heart palpitations (Acute) Lower extremity edema (Acute) Shortness of breath (Acute) LV dysfunction (Acute) You will use the following diet at home:: Cardiac Your food should be the consistency of: Regular Your liquids should be the consistency of: Regular/Thin Discharge Activity: - - activity as tolerated. no heavy lifting until ok'd by cardiology. May resume sexual activity in: No Restrictions Call your doctor if you observe: Fever of 101 or Higher, Shortness of breath, Chest pain Allergies/Adverse Reactions: Allergies No Known Allergies Allergy (Verified 06/27/17 15:58) Medications to take at Discharge Acetaminophen [Tylenol Tablet] 650 mg PO Q6H PRN PRN tablet 06/30/17 Aspirin E.C. [Ecotrin] 81 mg PO DAILY@0800 tablet 06/30/17 Atorvastatin Calcium [Lipitor] 40 mg PO QHS #30 tab 06/30/17 Carvedilol [Coreg (Beta Derek)] 3.125 mg PO BID #60 tab 06/30/17 Furosemide [Lasix] 40 mg PO DAILY #30 tab 06/30/17 Lisinopril [Zestril] 20 mg PO DAILY #30 tab 06/30/17 Ticagrelor [Brilinta] 90 mg PO BID #60 tab 06/30/17 The following prescriptions were given: Atorvastatin Calcium [Lipitor] 40 mg PO QHS #30 tab Furosemide [Lasix] 40 mg PO DAILY #30 tab Lisinopril [Zestril] 20 mg PO DAILY #30 tab Carvedilol [Coreg (Beta Derek)] 3.125 mg PO BID #60 tab Ticagrelor [Brilinta] 90 mg PO BID #60 tab Primary Care Physician: Chaitanya Pal Chi, MD [Primary Care Provider] - Within 1 Week Please Follow Up With: Perico Quiroz MD - cardiology When: 2-3 weeks Proposed Discharge Date: 06/30/17
--- NOTE | 2017-06-30 13:27 | PCM.DC.SUM ---
Discharge Date and Diagnosis - Problem List Patient Problems: Active and Suspected Problems Unstable angina (Acute) Afib (Acute) Heart failure with reduced ejection fraction (Acute) Date of Admission: 06/27/17 Date of Discharge: 06/30/17 - Primary Discharge Diagnosis Active and Suspected Problems Unstable angina (Acute) Afib (Acute) Heart failure with reduced ejection fraction (Acute) Hospital Course and Treatment Imaging Results: Clinical Impression(s) from Imaging Studies Chest X-Ray 06/27/17 16:24 IMPRESSION: Cardiomegaly associated with pulmonary venous congestion and possible interstitial edema. Scattered scattered faint nodules throughout the lungs, consider CT for further evaluation. Electronically Signed: Alethea Mujica MD at 16:53 EST Tel , Service support , Richie Procedures: Cardiac catheterization Summary of Care Provided: The patient is a 81 year old M Sherice with palpitations. Patient was found to be in ventricular bigeminy subsequent found to be in atrial fibrillation. Patient was also had some heart failure as well. Patient underwent a left heart catheterization on the , where he had a drug-eluting stent to the mid left anterior descending artery. Patient had ejection fraction of 40-45%. Patient was placed on Lasix, aspirin, Brilinta and atorvastatin. Patient's heart catheter sedation was comp gated by a right groin hematoma. Patient did have a pressure device placed and patient has no further issues pertaining to that. Given the patient's atrial fibrillation his Coumadin will be not started at this time until about 2 or 3 weeks time at which point he will be following up with cardiology. And they at that time will determine the initiation of Coumadin or not. Patient is otherwise doing well, he has no chest pain, no further palpitations. Patient will be discharged home in stable condition. [] Discharge Diet: Low fat/ Low Cholesterol Discharge Activity: - - activity as tolerated. no heavy lifting until ok'd by cardiology. May resume sexual activity in: No Restrictions Call your doctor if you observe: Fever of 101 or Higher, Shortness of breath, Chest pain Home Medications: Medications to take at Discharge Acetaminophen [Tylenol Tablet] 650 mg PO Q6H PRN PRN tablet 06/30/17 Aspirin E.C. [Ecotrin] 81 mg PO DAILY@0800 tablet 06/30/17 Atorvastatin Calcium [Lipitor] 40 mg PO QHS #30 tab 06/30/17 Carvedilol [Coreg (Beta Derek)] 3.125 mg PO BID #60 tab 06/30/17 Furosemide [Lasix] 40 mg PO DAILY #30 tab 06/30/17 Lisinopril [Zestril] 20 mg PO DAILY #30 tab 06/30/17 Ticagrelor [Brilinta] 90 mg PO BID #60 tab 06/30/17 Following Prescrptions Were Given to Patient: Atorvastatin Calcium [Lipitor] 40 mg PO QHS #30 tab Furosemide [Lasix] 40 mg PO DAILY #30 tab Lisinopril [Zestril] 20 mg PO DAILY #30 tab Carvedilol [Coreg (Beta Derek)] 3.125 mg PO BID #60 tab Ticagrelor [Brilinta] 90 mg PO BID #60 tab Primary Care Physician: Chaitanya Pal Chi, MD [Primary Care Provider] - Within 1 Week Please Follow Up With: Perico Quiroz MD - cardiology When: 2-3 weeks Disposition: Home Minutes spent on discharge:: 32 Patient Condition:: Fair Meaningful Use Info Meaningful Use Diagnoses (Choose all that apply): None applicable Code Visit Inpatient E&M: 67012 Disch Hosp
--- NOTE | 2017-06-30 13:45 | PCM.PN.CARD ---
Subjectve: Patient doing well. Telemetry normal sinus rhythm with PACs and PVC, EKG normal sinus rhythm with PVC and PAC. No chest pain. Patient feels great explanation valeriy Objective: Vital Signs Temp Pulse Resp BP Pulse Ox 98.4 F 68 16 128/65 H 96 06/30/17 09:25 06/30/17 10:59 06/30/17 09:25 06/30/17 09:25 06/30/17 09:25 Oxygen Flow Rate 2 Oxygen Delivery Method Room Air Weight: 163 lb 2.273 oz Body Mass Index (BMI) 23.3 Intake and Output for Last 24 Hours 06/28/17 06/29/17 06/30/17 23:59 23:59 23:59 Intake Total 824 / 824 660 / 660 360 / 360 Output Total 3225 / 3225 500 / 500 Balance -2401 / -2401 160 / 160 360 / 360 General: Awake, Alert, Oriented x 3 HEENT: PERRL, EOMI, Sclera Non Icteric Neck: Supple, Good ROM, No Lymph Node Enlargement Lungs: Clear to auscultation Cardiovascular: Regular Rhythm, Normal S1, Normal S2, No Murmurs, No Rubs, No Gallops Vascular: No Carotid Bruits, Normal Femoral Pulses, Normal Radial Pulses, Normal Dorsalis Pedal Pulse, Normal Posterior Tibial Pulses Abdomen: Bowel Sounds Present, Soft, Non Tender, No HSM, No Organomegaly Extremities: No Cyanosis, No Clubbing, No edema Neurological: No Focal Motor or Sensory Deficit 06/30/17 06:45: Sodium 138, Potassium 4.2, Chloride 105, Carbon Dioxide 27.0, Anion Gap 6, BUN 25 H, Creatinine 0.83, Est GFR (MDRD) Af Amer 114, Est GFR (MDRD) Non-Af 94, BUN/Creatinine Ratio 30.1 H, Glucose 108 H, Calcium 8.1 L Rhythm: EKG: ECHO: Stress Test: Cardiac Cath: PCI: CT Surgery: Holter monitor: EPS: PPM: CXR: Chest CT Scan: Assessment/Plan 1. LV dysfunction: The patient is found to have at least moderate LV dysfunction by echocardiogram and confirmed by catheterization on this admission. The patient had a critical lesion in his mid LAD which was treated successfully with angioplasty and stenting with a drug-eluting stent. His remaining coronary arteries have minimal nonobstructive disease and require no additional evaluation or intervention. The patient will be started on Coreg 3.125 mg p.o. twice daily for heart rate and afterload reduction, as well as lisinopril 10 mg p.o. daily for afterload reduction. In addition he will continue aspirin and Brilinta going forward. Patient's arrhythmia has reverted back to normal sinus rhythm, no indication for anticoagulation at this time. Right groin is clean/dry/intact with ecchymosis but no hematoma or bruit. Once the patient is completed cardiac rehab we will repeat echocardiogram in 3-4 months. New Lasix 40 mg daily. 2. Hyperlipidemia: Continue Lipitor therapy. Repeat lipid profile in 6 weeks time. 3. Patient may be downgraded to PCU. Be discharged today. Code Visit Inpatient E&M: 77176 [facility] Hosp L2
--- NOTE | 2017-06-30 13:48 | PN.CARD_ITS ---
Subjectve: Patient doing well. Telemetry normal sinus rhythm with PACs and PVC, EKG normal sinus rhythm with PVC and PAC. No chest pain. Patient feels great explanation valeriy Objective: Vital Signs Temp Pulse Resp BP Pulse Ox 98.4 F 68 16 128/65 H 96 06/30/17 09:25 06/30/17 10:59 06/30/17 09:25 06/30/17 09:25 06/30/17 09:25 Oxygen Flow Rate 2 Oxygen Delivery Method Room Air Weight: 163 lb 2.273 oz Body Mass Index (BMI) 23.3 Intake and Output for Last 24 Hours 06/28/17 06/29/17 06/30/17 23:59 23:59 23:59 Intake Total 824 / 824 660 / 660 360 / 360 Output Total 3225 / 3225 500 / 500 Balance -2401 / -2401 160 / 160 360 / 360 General: Awake, Alert, Oriented x 3 HEENT: PERRL, EOMI, Sclera Non Icteric Neck: Supple, Good ROM, No Lymph Node Enlargement Lungs: Clear to auscultation Cardiovascular: Regular Rhythm, Normal S1, Normal S2, No Murmurs, No Rubs, No Gallops Vascular: No Carotid Bruits, Normal Femoral Pulses, Normal Radial Pulses, Normal Dorsalis Pedal Pulse, Normal Posterior Tibial Pulses Abdomen: Bowel Sounds Present, Soft, Non Tender, No HSM, No Organomegaly Extremities: No Cyanosis, No Clubbing, No edema Neurological: No Focal Motor or Sensory Deficit 06/30/17 06:45: Sodium 138, Potassium 4.2, Chloride 105, Carbon Dioxide 27.0, Anion Gap 6, BUN 25 H, Creatinine 0.83, Est GFR (MDRD) Af Amer 114, Est GFR ( MDRD) Non-Af 94, BUN/Creatinine Ratio 30.1 H, Glucose 108 H, Calcium 8.1 L Rhythm: EKG: ECHO: Stress Test: Cardiac Cath: PCI: CT Surgery: Holter monitor: EPS: PPM: CXR: Chest CT Scan: Assessment/Plan 1. LV dysfunction: The patient is found to have at least moderate LV dysfunction by echocardiogram and confirmed by catheterization on this admission. The patient had a critical lesion in his mid LAD which was treated successfully with angioplasty and stenting with a drug-eluting stent. His remaining coronary arteries have minimal nonobstructive disease and require no additional evaluation or intervention. The patient will be started on Coreg 3.125 mg p.o. twice daily for heart rate and afterload reduction, as well as lisinopril 10 mg p.o. daily for afterload reduction. In addition he will continue aspirin and Brilinta going forward. Patient's arrhythmia has reverted back to normal sinus rhythm, no indication for anticoagulation at this time. Right groin is clean/dry/intact with ecchymosis but no hematoma or bruit. Once the patient is completed cardiac rehab we will repeat echocardiogram in 3- 4 months. New Lasix 40 mg daily. 2. Hyperlipidemia: Continue Lipitor therapy. Repeat lipid profile in 6 weeks time. 3. Patient may be downgraded to PCU. Be discharged today. Code Visit Inpatient E&M: 22635 [facility] Hosp L2
--- NOTE | 2017-06-30 14:35 | CASEMGMT ---
Per Dr. Will, pt to be sent home on Brilinta. Scripts e-scribed to [facility] retail pharmacy at this time. Call to Mohsen at pharmacy and he states that co-pay is $40/month. Pt's was already given $0 co-pay card. Pt updated on Brilinta at this time, voices understanding. Camille SHEFFIELD aware and she states that she will also relay information to with discharge instructions. Tonio SHEFFIELD
== END 2017-06-30 14:54 | disposition home or self-care (01) | DRG 247 ==
LOC: ED 16:45 → PCU 19:38 → ICU 06-28 12:24 → PCU 06-29 19:47
PROVIDERS: Internal Medicine Cardiovascular Disease; Admitting Provider Internal Medicine; Emergency Provider Emergency Medicine; Family Provider Family Medicine Geriatric Medicine; PCP Family Medicine Geriatric Medicine
DX: I50.21 Acute systolic (congestive) heart failure (principal); I25.110 Atherosclerotic heart disease of native coronary artery with unstable angina pectoris; L76.32 Postprocedural hematoma of skin and subcutaneous tissue following other procedure; R00.8 Other abnormalities of heart beat; I48.91 Unspecified atrial fibrillation; I44.1 Atrioventricular block, second degree; I11.0 Hypertensive heart disease with heart failure; E03.9 Hypothyroidism, unspecified; Z87.891 Personal history of nicotine dependence; Y84.0 Cardiac catheterization as the cause of abnormal reaction of the patient, or of later complication, without mention of misadventure at the time of the procedure; E78.5 Hyperlipidemia, unspecified
CPT/HCPCS: 36415; 71045; 80048; 82550; 83735; 83880; 84439; 84443; 84481; 84484; 85025; 85027; 85347; 85379; 85610; 85730; 87641; 92928; 93005; 93306; 93458; 99283; J7030; J7040; Q9967; A4216; C1725; C1769; C1874; C1887; C1894; C9600; J1940

== ENCOUNTER → 2017-09-13 08:57 | Outpatient (CLI) | payer MEDICARE, SELFPAY ==
[2017-09-13 09:39] LABS: Albumin, Serum 3.9 g/dL (3.2-5.0); Protein, Total 7.5 g/dL (6.4-8.2)
[2017-09-13 09:40] LABS: AST(SGOT) 25 U/L (15-37); Alanine Aminotransfer ALT/SGPT 54 U/L (16-61); Alkaline Phosphatase 87 U/L (45-117); Bilirubin, Direct 0.29 mg/dL (0.00-0.30); Cholesterol 80 mg/dL (200); Globulin 3.6 g/dL (2.2-4.2); High Density Lipoprotein 44 mg/dL; Triglycerides 58 mg/dL; Very Low Density Lipoprotein 12 mg/dL (5-40)
== END ==
PROVIDERS: Family Provider Family Medicine Geriatric Medicine; PCP Family Medicine Geriatric Medicine; Visit Provider Internal Medicine Cardiovascular Disease
DX: I25.119 Atherosclerotic heart disease of native coronary artery with unspecified angina pectoris (principal); I25.5 Ischemic cardiomyopathy; Z95.5 Presence of coronary angioplasty implant and graft
CPT/HCPCS: 36415; 80061; 80076

== ENCOUNTER → 2018-01-26 09:52 | Outpatient (CLI) | payer MEDICARE, SELFPAY ==
--- NOTE | 2018-01-26 09:54 | ECHOD_ITS ---
Reason For Study: CHF Procedure This was a 2D Doppler, Color Flow transthoracic echocardiogram. The study was technically difficult. Exam performed in department. Left Ventricle Mildly dilated left ventricle. The estimated ejection fraction is 40-45 %. Unable to assess diastolic dysfunction due to arrhythmia. There is moderate global hypokinesis of the left ventricle. Right Ventricle Mildly dilated right ventricle. Normal systolic function. Atria The left atrium is severely enlarged. Normal right atrium. Normal atrial septum. Mitral Valve The mitral valve is structurally normal. No prolapse or stenosis seen. Trivial mitral valve insufficiency. Tricuspid Valve Normal tricuspid valve. Mild (1+) tricuspid valve insufficiency. Right ventricular systolic pressure estimated to be 54 mmHg. Moderate pulmonary hypertension. Aortic Valve Trisinus/trileaflet aortic valve. Moderate diffuse aortic valve thickening. There is no aortic stenosis. Pulmonic Valve Normal pulmonic valve. Trivial pulmonic valve insufficiency. Great Vessels Normal aortic root. Mild atherosclerosis of the aortic arch. Normal inferior vena cava. Inferior vena cava collapse with sniff. Pericardium/Pleural No pericardial effusion. MMode/2D Measurements & Calculations LVIDd: 5.3 cm IVSd: 1.3 cm LA dimension: 4.3 cm LVIDs: 4.3 cm LVPWd: 1.0 cm RVDd: 3.7 cm FS: 18.7 % LAV(MOD-bp): 117.5 ml LA A4 area: 33.2 cm2 RA A4 area: 17.8 cm2 LAV(MOD-bp) Indexed: 59.7 ml/m2 LAV(MOD-sp2): 104.9 ml LAV(MOD-sp4): 128.2 ml Doppler Measurements & Calculations MV E max michael: 59.0 cm/sec Lat Peak E' Michael: 13.4 cm/sec Med Peak E' Michael: 5.3 cm/sec MV A max michael: 53.8 cm/sec E/E' lat: 4.4 E/E' med: 11.2 MV E/A: 1.1 Ao V2 max: 101.3 cm/sec LV V1 max: 74.0 cm/sec PA V2 max: 75.6 cm/sec Ao max P.1 mmHg LV V1 max P.2 mmHg TR max michael: 295.7 cm/sec TR max P.1 mmHg Interpretation Summary Mildly dilated left ventricle. The estimated ejection fraction is 40-45 %. Unable to assess diastolic dysfunction due to arrhythmia. There is moderate global hypokinesis of the left ventricle. The left atrium is severely enlarged. Trivial mitral valve insufficiency. Mild (1+) tricuspid valve insufficiency. Right ventricular systolic pressure estimated to be 54 mmHg. Moderate pulmonary hypertension. Compared to echo report dated 06/28/2017, no appreciable changes noted. Pt appears again to be in atrial fibrillation. Ordering Physician: Perico Quiroz Referring Physician: Chaitanya Pal Chi Performed By: Sonali Mendoza RDCS, RVT
== END ==
PROVIDERS: Family Provider Family Medicine Geriatric Medicine; PCP Family Medicine Geriatric Medicine; Visit Provider Internal Medicine Cardiovascular Disease
DX: I36.1 Nonrheumatic tricuspid (valve) insufficiency (principal); I50.9 Heart failure, unspecified
CPT/HCPCS: 93306

== ENCOUNTER 2018-01-28 09:27 | Emergency (ER) | payer MEDICARE, SELFPAY ==
[2018-01-28 09:28] VITALS: BP 148/60; PULSE 67; RESP 18; TEMP 36.5; O2SAT 95; BMI 23.2
--- NOTE | 2018-01-28 10:16 | ED.DCSUM_ITS ---
- ER Visit Summary Date of Service: 01/28/18 Chief Complaint: Left-sided nosebleed History of Present Illness: The patient is a 82 M history of coronary disease with cardiac stents. Currently on Brilinta and aspirin for anticoagulation. Patient blew his nose this morning had some from the left with clots. Denies any hematuria or melena. He typically does not get frequent nosebleeds. Physical Examination: Well-appearing older male. Vital signs are stable afebrile. Initial blood pressure 148/60. HEENT exam active bleeding from his left nares with clots. Right side is unremarkable. He has blood in his posterior pharynx and mouth. Neck nontender. Lungs clear to auscultation bilaterally. Heart regular rhythm. Abdomen soft and nontender. Moving all 4 extremities. No edema. Neurologically is awake and alert with no focal motor deficits. Test Results: After patient threw up one episode of blood which I thought was swallowed blood from his nosebleed I checked a CBC. White count 9. Hemoglobin 12.4 which is his baseline. Electrolytes unremarkable gap is 7. Creatinine of 1. Emergency Department Course and Treatment: I had the patient blow his nose to clear the clots. Afrin soaked cotton balls were placed in both nares. Bleeding greatly slowed down. I placed a left anterior Merisel nasal pack in the left. Bleeding is completely resolved. Patient did throw up some blood which appeared to be bloody and swollen from his nosebleed. I obtained a CBC which was his baseline. His hemoglobin was 12.4 which is his baseline. Repeat exam at 1340 has bleeding is completely resolved. His posterior pharynx is clean without any active bleeding. He feels and looks good. Treatment Plan: Nasal packing for the next 3 days. Remove on Monday evening. Follow-up with ENT as needed. Return to the ER if bleeding continues and is unable to get it stopped. Disposition: Discharged Impression: Acute left anterior nosebleed Anterior nasal pack by ER Anticoagulated on Brilinta and aspirin for known coronary disease and cardiac stents This note was generated with [employer] dictation software. It may contain incorrect words, spelling, and punctuation that were not noted in review of the chart prior to signing ED Disposition - Plan for ED Patient: Chief Complaint: Nosebleed Referrals: Chaitanya Pal Chi, MD [Primary Care Provider] -
[2018-01-28 11:55] VITALS: BP 150/70; PULSE 70; RESP 14; O2SAT 98
[2018-01-28 12:03] LABS: Hematocrit 37.1 % (40-54); Hemoglobin 12.4 g/dl (13.0-16.5); Mean Corp Hgb Conc 33.4 g/gl (32-36); Mean Corpuscular Hgb 32.2 pg (27.0-32.0); Mean Corpuscular Volume 96.4 fL (80-94); Mean Platelet Vol. 9.8 fl (6.2-12.0); Platelet Count 196 K/mm3 (150-450); RBC Distribution Width SD 44.5 fl (35.1-43.9); Red Blood Count 3.85 M/mm3 (4.6-6.2); Scan Indicated on CBC? Y/N NO; White Blood Count 9.3 K/mm3 (4.4-11.0)
[2018-01-28 12:12] LABS: Anion Gap 7 (5-15); BUN 26 mg/dL (7-18); Calcium,Total 8.2 mg/dL (8.5-10.1); Chloride 100 mmol/L (98-107); Creatinine, Serum 1.04 mg/dL (0.70-1.30); EST Glomerular Filtration Rate 72 mL/min (>60); Est Glom Filt Rate - Afr Amer 88 mL/min (>60); Estimated Creatinine Clearance 55.57 ml/min; Glucose 139 mg/dL (74-106); Potassium 4.1 mmol/L (3.5-5.1); Sodium Level 135 mmol/L (136-145)
--- NOTE | 2018-01-28 13:50 | ED.DEP ---
ED Disposition - Plan for ED Patient: Disposition: Home or Assisted Living Chief Complaint: Nosebleed Instructions: Nosebleed Prescriptions: Amoxicillin 250 mg PO TID #9 cap Referrals: Laureano Erazo MD [STAFF PHYSICIAN] - 3-5 Days if not improving Additional Instructions: Left nasal packing remains in place for the next 3 days. Should be removed Monday afternoon. May remove yourself slowly or return to the ER or follow-up with the ear nose and throat doctors office (Dr. Laureano Erazo)to have it taken out. Continue your current medications. 1 amoxicillin 3 times a day until the packing is removed. If nose starts to bleed again hold direct pressure and ice. If unable to get it stopped to return to the ER. If you feel worse or are throwing up more blood or passing black stools return also.
--- NOTE | 2018-01-28 13:53 | DCINST.ED_ITS ---
ED Disposition - Plan for ED Patient: Disposition: Home or Assisted Living Chief Complaint: Nosebleed Instructions: Nosebleed Prescriptions: Amoxicillin 250 mg PO TID #9 cap Referrals: Laureano Erazo MD [STAFF PHYSICIAN] - 3-5 Days if not improving Additional Instructions: Left nasal packing remains in place for the next 3 days. Should be removed Monday afternoon. May remove yourself slowly or return to the ER or follow- up with the ear nose and throat doctors office (Dr. Laureano Erazo)to have it taken out. Continue your current medications. 1 amoxicillin 3 times a day until the packing is removed. If nose starts to bleed again hold direct pressure and ice. If unable to get it stopped to return to the ER. If you feel worse or are throwing up more blood or passing black stools return also.
[2018-01-28 14:01] VITALS: BP 145/70; PULSE 75; PULSE 80; RESP 14; O2SAT 98
== END 2018-01-28 14:02 | disposition home or self-care (01) ==
PROVIDERS: Emergency Provider Emergency Medicine; Family Provider Family Medicine Geriatric Medicine; PCP Family Medicine Geriatric Medicine
DX: R04.0 Epistaxis (principal); I25.10 Atherosclerotic heart disease of native coronary artery without angina pectoris; I10 Essential (primary) hypertension; Z79.02 Long term (current) use of antithrombotics/antiplatelets; Z79.82 Long term (current) use of aspirin; Z79.899 Other long term (current) drug therapy; Z95.5 Presence of coronary angioplasty implant and graft
CPT/HCPCS: 30901; 80048; 85027; 99283; A4216

== ENCOUNTER → 2018-02-05 12:53 | Outpatient (CLI) | payer MEDICARE, SELFPAY ==
[2018-02-05 14:03] LABS: Absolute Lymphocyte Count 1.14 X10^3/ul (0.83-4.51); Absolute Neutrophil Count 4.5 X10^3/uL (2.0-7.7); Basophil# 0.05 X10^3/uL; Basophil% 0.7 % (0-1); Eosinophil# 0.15 X10^3/uL; Eosinophils% 2.2 % (0-5); Hematocrit 34.5 % (40-54); Hemoglobin 11.8 g/dl (13.0-16.5); Lymphocyte # 1.14 X10^3/ul (4.0); Lymphocyte % 17.1 % (19-41); Mean Corp Hgb Conc 34.2 g/gl (32-36); Mean Corpuscular Hgb 32.5 pg (27.0-32.0); Mean Platelet Vol. 9.9 fl (6.2-12.0); Monocyte# 0.78 X10^3/uL; Monocyte% 11.7 % (0-10); Neutrophil # 4.51 X10^3/uL (2.7-7.7); Neutrophil % 67.6 % (47-70); Platelet Count 243 K/mm3 (150-450); RBC Distribution Width CV 13.3 % (11.6-14.6); Red Blood Count 3.63 M/mm3 (4.6-6.2); White Blood Count 6.7 K/mm3 (4.4-11.0)
[2018-02-05 14:14] LABS: Vitamin D,25 Hydroxy 17.2 ng/mL (29.95-100.01)
[2018-02-05 14:17] LABS: POSITIVE COUNT NO; POSITIVE DIFFERENTIAL NO; POSITIVE MORPHOLOGY NO
[2018-02-05 14:20] LABS: ALB/GLOB Ratio 1.1 RATIO (0.9-2.4); AST(SGOT) 27 U/L (15-37); Alanine Aminotransfer ALT/SGPT 69 U/L (16-61); Albumin, Serum 3.7 g/dL (3.2-5.0); Alkaline Phosphatase 84 U/L (45-117); Anion Gap 8 (5-15); BUN 17 mg/dL (7-18); BUN/Creat Ratio 16.7 RATIO (10-20); Calcium,Total 8.6 mg/dL (8.5-10.1); Chloride 94 mmol/L (98-107); Creatinine, Serum 1.02 mg/dL (0.70-1.30); EST Glomerular Filtration Rate 74 mL/min (>60); Est Glom Filt Rate - Afr Amer 90 mL/min (>60); Globulin 3.3 g/dL (2.2-4.2); Glucose 120 mg/dL (74-106); Potassium 4.5 mmol/L (3.5-5.1); Sodium Level 129 mmol/L (136-145)
== END ==
PROVIDERS: Family Provider Family Medicine Geriatric Medicine; PCP Family Medicine Geriatric Medicine; Visit Provider Family Medicine Geriatric Medicine
DX: I10 Essential (primary) hypertension (principal); E55.9 Vitamin D deficiency, unspecified
CPT/HCPCS: 36415; 80053; 82306; 84443; 85025

== ENCOUNTER → 2018-08-08 11:02 | Outpatient (CLI) | payer MEDICARE, SELFPAY ==
[2018-05-24 10:29] VITALS: BMI 23.3
[2018-08-08 13:57] LABS: Absolute Lymphocyte Count 1.23 X10^3/ul (0.83-4.51); Absolute Neutrophil Count 3.9 X10^3/uL (2.0-7.7); Basophil# 0.03 X10^3/uL; Basophil% 0.5 % (0-1); Eosinophil# 0.18 X10^3/uL; Eosinophils% 2.9 % (0-5); Hematocrit 40.4 % (40-54); Hemoglobin 13.4 g/dl (13.0-16.5); Lymphocyte # 1.23 X10^3/ul (4.0); Lymphocyte % 19.7 % (19-41); Mean Corp Hgb Conc 33.2 g/gl (32-36); Mean Corpuscular Hgb 31.1 pg (27.0-32.0); Mean Corpuscular Volume 93.7 fL (80-94); Mean Platelet Vol. 10.4 fl (6.2-12.0); Monocyte# 0.83 X10^3/uL; Monocyte% 13.3 % (0-10); Neutrophil # 3.94 X10^3/uL (2.7-7.7); Neutrophil % 63.1 % (47-70); POSITIVE COUNT NO; POSITIVE DIFFERENTIAL NO; POSITIVE MORPHOLOGY NO; Platelet Count 203 K/mm3 (150-450); RBC Distribution Width CV 13.4 % (11.6-14.6); RBC Distribution Width SD 44.2 fl (35.1-43.9); Red Blood Count 4.31 M/mm3 (4.6-6.2); White Blood Count 6.2 K/mm3 (4.4-11.0)
[2018-08-08 14:08] LABS: Vitamin D,25 Hydroxy 45.4 ng/mL (29.95-100.01)
[2018-08-08 14:22] LABS: ALB/GLOB Ratio 1.1 RATIO (0.9-2.4); AST(SGOT) 27 U/L (15-37); Alanine Aminotransfer ALT/SGPT 48 U/L (16-61); Alkaline Phosphatase 97 U/L (45-117); Anion Gap 4 (5-15); BUN 20 mg/dL (7-18); BUN/Creat Ratio 20.9 RATIO (10-20); Calcium,Total 8.8 mg/dL (8.5-10.1); Chloride 99 mmol/L (98-107); Creatinine, Serum 0.96 mg/dL (0.70-1.30); EST Glomerular Filtration Rate 80 mL/min (>60); Est Glom Filt Rate - Afr Amer 96 mL/min (>60); Globulin 3.7 g/dL (2.2-4.2); Glucose 103 mg/dL (74-106); Potassium 4.1 mmol/L (3.5-5.1); Protein, Total 7.7 g/dL (6.4-8.2); Sodium Level 132 mmol/L (136-145); Thyroid Stim Hormone (TSH) 4.28 uIU/mL (0.358-3.74)
== END ==
PROVIDERS: Family Provider Family Medicine Geriatric Medicine; PCP Family Medicine Geriatric Medicine; Visit Provider Family Medicine Geriatric Medicine
DX: I10 Essential (primary) hypertension (principal); E55.9 Vitamin D deficiency, unspecified
CPT/HCPCS: 36415; 80053; 82306; 84443; 85025

== ENCOUNTER → 2018-10-04 09:38 | Outpatient (CLI) | payer MEDICARE, SELFPAY ==
[2018-05-24 10:29] VITALS: BMI 23.3
== END ==
PROVIDERS: Family Provider Family Medicine Geriatric Medicine; PCP Family Medicine Geriatric Medicine; Visit Provider Family Medicine Geriatric Medicine
DX: E03.9 Hypothyroidism, unspecified (principal)
CPT/HCPCS: 36415; 84443

== ENCOUNTER → 2018-12-27 09:08 | Outpatient (CLI) | payer MEDICARE, SELFPAY ==
[2018-12-20 15:29] VITALS: BMI 23.3
[2018-12-27 10:27] LABS: AST(SGOT) 23 U/L (15-37); Alanine Aminotransfer ALT/SGPT 39 U/L (16-61); Albumin, Serum 3.6 g/dL (3.2-5.0); Alkaline Phosphatase 85 U/L (45-117); Bilirubin, Direct 0.27 mg/dL (0.00-0.30); Cholesterol 90 mg/dL (200); Globulin 3.5 g/dL (2.2-4.2); High Density Lipoprotein 45 mg/dL; Protein, Total 7.1 g/dL (6.4-8.2); Triglycerides 73 mg/dL; Very Low Density Lipoprotein 15 mg/dL (5-40)
== END ==
PROVIDERS: Family Provider Family Medicine Geriatric Medicine; PCP Family Medicine Geriatric Medicine; Referring Provider Internal Medicine Cardiovascular Disease; Visit Provider Internal Medicine Cardiovascular Disease
DX: E78.5 Hyperlipidemia, unspecified (principal)
CPT/HCPCS: 36415; 80061; 80076

== ENCOUNTER → 2019-01-23 08:43 | Outpatient (CLI) | payer MEDICARE, SELFPAY ==
[2018-12-20 15:29] VITALS: BMI 23.3
--- NOTE | 2019-01-23 08:45 | ECHOD_ITS ---
Reason For Study: CHF Procedure This was a 2D Doppler, Color Flow transthoracic echocardiogram. Exam performed in department. Left Ventricle Moderately dilated left ventricle. The estimated ejection fraction is 45 %. Unable to assess diastolic dysfunction due to arrhythmia. There is moderate global hypokinesis of the left ventricle. Right Ventricle Mildly dilated right ventricle. Normal systolic function. Atria The left atrium is severely enlarged. Normal right atrium. Normal atrial septum. Mitral Valve Mild diffuse mitral valve thickening. Mild (1+) mitral valve insufficiency. Tricuspid Valve Normal tricuspid valve. Mild (1+) tricuspid valve insufficiency. Right ventricular systolic pressure estimated to be 54 mmHg. Moderate pulmonary hypertension. Aortic Valve Trisinus/trileaflet aortic valve. Moderate diffuse aortic valve thickening. There is no aortic stenosis. Pulmonic Valve Normal pulmonic valve. Trivial pulmonic valve insufficiency. Great Vessels Calcified aortic root. Mild atherosclerosis of the aortic arch. Normal inferior vena cava. Inferior vena cava collapse with sniff. Pericardium/Pleural No pericardial effusion. MMode/2D Measurements & Calculations LVIDd: 5.3 cm IVSd: 1.2 cm Ao root diam: 3.9 cm LVIDs: 4.1 cm LVPWd: 1.2 cm RVDd: 3.8 cm FS: 23.5 % LAV(MOD-bp): 119.1 ml LA A4 area: 30.0 cm2 LA dimension(2D): 4.6 cm LAV(MOD-bp) Indexed: 62.3 ml/m2 LAV(MOD-sp2): 118.6 ml LAV(MOD-sp4): 112.5 ml RA A4 area: 17.8 cm2 Time Measurements MV dec time: 0.21 sec Doppler Measurements & Calculations MV E max sabrina: 80.6 cm/sec Ao V2 max: 100.7 cm/sec LV V1 max: 71.5 cm/sec MV A max sabrina: 49.1 cm/sec Ao max P.1 mmHg LV V1 max P.0 mmHg MV E/A: 1.6 MR max sabrina: 505.1 cm/sec PA V2 max: 66.3 cm/sec TR max sabrina: 301.6 cm/sec MR max P.0 mmHg TR max P.4 mmHg Interpretation Summary Moderately dilated left ventricle. The estimated ejection fraction is 45 %. Unable to assess diastolic dysfunction due to arrhythmia. There is moderate global hypokinesis of the left ventricle. Mildly dilated right ventricle. The left atrium is severely enlarged. Mild (1+) mitral valve insufficiency. Mild (1+) tricuspid valve insufficiency. Right ventricular systolic pressure estimated to be 54 mmHg. Moderate pulmonary hypertension. Mild atherosclerosis of the aortic arch. Compared to echo report dated 01/26/2018, no appreciable changes noted. Pt appears to be in atrial fibrillation. Ordering Physician: Perico Quiroz Referring Physician: Chaitanya Pal Chi Performed By: Sonali Mendoza, ZAKI, RVT
== END ==
PROVIDERS: Family Provider Family Medicine Geriatric Medicine; PCP Family Medicine Geriatric Medicine; Referring Provider Internal Medicine Cardiovascular Disease; Visit Provider Internal Medicine Cardiovascular Disease
DX: I36.1 Nonrheumatic tricuspid (valve) insufficiency (principal); I50.9 Heart failure, unspecified
CPT/HCPCS: 93306

== ENCOUNTER → 2019-02-06 09:51 | Outpatient (CLI) | payer MEDICARE, SELFPAY ==
[2018-12-20 15:29] VITALS: BMI 23.3
[2019-02-06 12:10] LABS: Absolute Lymphocyte Count 1.31 X10^3/uL (0.83-4.51); Absolute Neutrophil Count 3.4 X10^3/uL (2.0-7.7); Basophil# 0.06 X10^3/uL; Eosinophils% 3.4 % (0-5); Hematocrit 40.9 % (40-54); Hemoglobin 13.4 g/dL (13.0-16.5); Lymphocyte # 1.31 X10^3/ul (4.0); Lymphocyte % 22.5 % (19-41); Mean Corp Hgb Conc 32.8 g/dL (32-36); Mean Corpuscular Hgb 31.6 pg (27.0-32.0); Mean Corpuscular Volume 96.5 fL (80-94); Mean Platelet Vol. 10.5 fl (6.2-12.0); Monocyte# 0.82 X10^3/uL; Monocyte% 14.1 % (0-10); NRBC Flagged by Analyzer 0 % (0-5); Neutrophil # 3.39 X10^3/uL (2.7-7.7); Neutrophil % 58.5 % (47-70); Platelet Count 198 K/mm3 (150-450); RBC Distribution Width CV 13.2 % (11.6-14.6); RBC Distribution Width SD 46.9 fl (35.1-43.9); Red Blood Count 4.24 M/mm3 (4.6-6.2); Vitamin D,25 Hydroxy 28.4 ng/mL (29.95-100.01); White Blood Count 5.8 K/mm3 (4.4-11.0)
[2019-02-06 12:17] LABS: ALB/GLOB Ratio 1.1 RATIO (0.9-2.4); AST(SGOT) 25 U/L (15-37); Alanine Aminotransfer ALT/SGPT 42 U/L (16-61); Albumin, Serum 3.8 g/dL (3.2-5.0); Alkaline Phosphatase 96 U/L (45-117); Anion Gap 3 (5-15); BUN 18 mg/dL (7-18); BUN/Creat Ratio 18.4 RATIO (10-20); Calcium,Total 8.7 mg/dL (8.5-10.1); Chloride 99 mmol/L (98-107); Creatinine, Serum 0.98 mg/dL (0.70-1.30); EST Glomerular Filtration Rate 78 mL/min (>60); Est Glom Filt Rate - Afr Amer 94 mL/min (>60); Globulin 3.6 g/dL (2.2-4.2); Glucose 109 mg/dL (74-106); Potassium 4.4 mmol/L (3.5-5.1); Protein, Total 7.4 g/dL (6.4-8.2); Sodium Level 132 mmol/L (136-145); Thyroid Stim Hormone (TSH) 2.98 uIU/mL (0.358-3.74)
== END ==
PROVIDERS: Family Provider Family Medicine Geriatric Medicine; PCP Family Medicine Geriatric Medicine; Visit Provider Family Medicine Geriatric Medicine
DX: I10 Essential (primary) hypertension (principal); E55.9 Vitamin D deficiency, unspecified
CPT/HCPCS: 36415; 80053; 82306; 84443; 85025

== ENCOUNTER → 2020-02-12 11:00 | Outpatient (CLI) | payer MEDICARE, SELFPAY ==
[2020-02-12 09:20] VITALS: BMI 1174.0
[2020-02-12 12:20] LABS: Absolute Lymphocyte Count 0.99 X10^3/uL (0.83-4.51); Absolute Neutrophil Count 2.6 X10^3/uL (2.0-7.7); Basophil# 0.04 X10^3/uL; Basophil% 0.9 % (0-1); Eosinophil# 0.13 X10^3/uL; Eosinophils% 2.9 % (0-5); Hematocrit 39.8 % (40-54); Hemoglobin 13.2 g/dL (13.0-16.5); Lymphocyte # 0.99 X10^3/ul (4.0); Lymphocyte % 22.2 % (19-41); Mean Corp Hgb Conc 33.2 g/dL (32-36); Mean Corpuscular Hgb 32.6 pg (27.0-32.0); Mean Corpuscular Volume 98.3 fL (80-94); Mean Platelet Vol. 10.2 fl (6.2-12.0); Monocyte# 0.63 X10^3/uL; Monocyte% 14.2 % (0-10); NRBC Flagged by Analyzer 0 % (0-5); Neutrophil # 2.64 X10^3/uL (2.7-7.7); Neutrophil % 59.4 % (47-70); Platelet Count 214 K/mm3 (150-450); RBC Distribution Width CV 12.7 % (11.6-14.6); RBC Distribution Width SD 45.8 fl (35.1-43.9); Red Blood Count 4.05 M/mm3 (4.6-6.2); White Blood Count 4.5 K/mm3 (4.4-11.0)
[2020-02-12 12:35] LABS: Vitamin D,25 Hydroxy 35.8 ng/mL
[2020-02-12 12:47] LABS: AST(SGOT) 28 U/L (15-37); Alanine Aminotransfer ALT/SGPT 47 U/L (16-61); Albumin, Serum 3.8 g/dL (3.2-5.0); Alkaline Phosphatase 107 U/L (45-117); Anion Gap 4 (5-15); BUN 16 mg/dL (7-18); BUN/Creat Ratio 17.6 RATIO (10-20); Calcium,Total 8.8 mg/dL (8.5-10.1); Chloride 102 mmol/L (98-107); Creatinine, Serum 0.91 mg/dL (0.70-1.30); EST Glomerular Filtration Rate 84 mL/min (>60); Est Glom Filt Rate - Afr Amer 102 mL/min (>60); Globulin 3.9 g/dL (2.2-4.2); Glucose 120 mg/dL (74-106); Potassium 4.6 mmol/L (3.5-5.1); Protein, Total 7.7 g/dL (6.4-8.2); Sodium Level 133 mmol/L (136-145); Thyroid Stim Hormone (TSH) 4.09 uIU/mL (0.358-3.74)
== END ==
PROVIDERS: PCP Family Medicine Geriatric Medicine; Visit Provider Family Medicine Geriatric Medicine
DX: I10 Essential (primary) hypertension (principal); E55.9 Vitamin D deficiency, unspecified
CPT/HCPCS: 36415; 80053; 82306; 84443; 85025

== ENCOUNTER → 2020-08-12 12:12 | Outpatient (CLI) | payer MEDICARE, SELFPAY ==
[2020-02-12 09:20] VITALS: BMI 1174.0
[2020-08-12 12:32] LABS: Absolute Lymphocyte Count 1.18 X10^3/uL (0.83-4.51); Absolute Neutrophil Count 3.6 X10^3/uL (2.0-7.7); Basophil# 0.04 X10^3/uL; Basophil% 0.7 % (0-1); Eosinophil# 0.17 X10^3/uL; Eosinophils% 2.9 % (0-5); Hematocrit 38.1 % (40-54); Lymphocyte # 1.18 X10^3/ul (4.0); Lymphocyte % 20.3 % (19-41); Mean Corp Hgb Conc 34.1 g/dL (32-36); Mean Corpuscular Hgb 32.9 pg (27.0-32.0); Mean Corpuscular Volume 96.5 fL (80-94); Mean Platelet Vol. 9.7 fl (6.2-12.0); Monocyte# 0.83 X10^3/uL; Monocyte% 14.3 % (0-10); NRBC Flagged by Analyzer 0 % (0-5); Neutrophil # 3.57 X10^3/uL (2.7-7.7); Neutrophil % 61.3 % (47-70); Platelet Count 194 K/mm3 (150-450); RBC Distribution Width CV 13.5 % (11.6-14.6); RBC Distribution Width SD 47.8 fl (35.1-43.9); Red Blood Count 3.95 M/mm3 (4.6-6.2); White Blood Count 5.8 K/mm3 (4.4-11.0)
[2020-08-12 13:14] LABS: Vitamin D,25 Hydroxy 35.8 ng/mL
[2020-08-12 13:22] LABS: AST(SGOT) 22 U/L (15-37); Alanine Aminotransfer ALT/SGPT 42 U/L (16-61); Albumin, Serum 3.8 g/dL (3.2-5.0); Alkaline Phosphatase 120 U/L (45-117); Anion Gap 3 (5-15); BUN 19 mg/dL (7-18); BUN/Creat Ratio 20.9 RATIO (10-20); Calcium,Total 8.9 mg/dL (8.5-10.1); Chloride 99 mmol/L (98-107); Creatinine, Serum 0.91 mg/dL (0.70-1.30); EST Glomerular Filtration Rate 84 mL/min (>60); Est Glom Filt Rate - Afr Amer 102 mL/min (>60); Globulin 3.8 g/dL (2.2-4.2); Glucose 121 mg/dL (74-106); Potassium 4.4 mmol/L (3.5-5.1); Protein, Total 7.6 g/dL (6.4-8.2); Sodium Level 132 mmol/L (136-145)
== END ==
PROVIDERS: PCP Family Medicine Geriatric Medicine; Visit Provider Family Medicine Geriatric Medicine
DX: I10 Essential (primary) hypertension (principal); E03.9 Hypothyroidism, unspecified; E55.9 Vitamin D deficiency, unspecified
CPT/HCPCS: 36415; 80053; 82306; 84443; 85025

== ENCOUNTER → 2021-02-17 11:33 | Outpatient (CLI) | payer MEDICARE, SELFPAY ==
[2021-02-17 12:27] LABS: Absolute Lymphocyte Count 1.04 X10^3/uL (0.83-4.51); Absolute Neutrophil Count 3.2 X10^3/uL (2.0-7.7); Basophil# 0.05 X10^3/uL; Eosinophil# 0.17 X10^3/uL; Eosinophils% 3.3 % (0-5); Hematocrit 37.7 % (40-54); Lymphocyte # 1.04 X10^3/ul (0.83-4.51); Mean Corp Hgb Conc 34.5 g/dL (32-36); Mean Corpuscular Volume 95.7 fL (80-94); Mean Platelet Vol. 10.1 fl (6.2-12.0); Monocyte# 0.67 X10^3/uL; Monocyte% 12.9 % (0-10); NRBC Flagged by Analyzer 0 % (0-5); Neutrophil # 3.23 X10^3/uL (2.7-7.7); Neutrophil % 62.2 % (47-70); Platelet Count 191 K/mm3 (150-450); RBC Distribution Width CV 13.2 % (11.6-14.6); RBC Distribution Width SD 46.9 fl (35.1-43.9); Red Blood Count 3.94 M/mm3 (4.6-6.2); White Blood Count 5.2 K/mm3 (4.4-11.0)
[2021-02-17 12:43] LABS: Vitamin D,25 Hydroxy 29.7 ng/mL
[2021-02-17 12:53] LABS: AST(SGOT) 23 U/L (15-37); Alanine Aminotransfer ALT/SGPT 41 U/L (16-61); Albumin, Serum 3.7 g/dL (3.2-5.0); Alkaline Phosphatase 117 U/L (45-117); Anion Gap 2 (5-15); BUN 17 mg/dL (7-18); Calcium,Total 8.7 mg/dL (8.5-10.1); Chloride 95 mmol/L (98-107); Creatinine, Serum 0.95 mg/dL (0.70-1.30); EST Glomerular Filtration Rate 80 mL/min (>60); Est Glom Filt Rate - Afr Amer 97 mL/min (>60); Globulin 3.8 g/dL (2.2-4.2); Glucose 122 mg/dL (74-106); Potassium 4.6 mmol/L (3.5-5.1); Protein, Total 7.5 g/dL (6.4-8.2); Sodium Level 128 mmol/L (136-145); Thyroid Stim Hormone (TSH) 2.92 uIU/mL (0.358-3.74)
== END ==
PROVIDERS: PCP Family Medicine Geriatric Medicine; Visit Provider Family Medicine Geriatric Medicine
DX: E55.9 Vitamin D deficiency, unspecified (principal); I10 Essential (primary) hypertension
CPT/HCPCS: 36415; 80053; 82306; 84443; 85025

== ENCOUNTER → 2021-02-19 09:44 | Outpatient (CLI) | payer MEDICARE, SELFPAY ==
[2021-02-19 12:46] LABS: Urine Sodium 11 mmol/L (Not Establ.)
[2021-02-19 12:51] LABS: Osmolality, Serum 273 mOsm/KG (280-301); Osmolality, Urine 472 mOsm/KG
[2021-02-19 12:52] LABS: Anion Gap 6 (5-15); BUN 16 mg/dL (7-18); BUN/Creat Ratio 17.7 RATIO (10-20); Calcium,Total 8.6 mg/dL (8.5-10.1); Chloride 95 mmol/L (98-107); Creatinine, Serum 0.91 mg/dL (0.70-1.30); EST Glomerular Filtration Rate 84 mL/min (>60); Est Glom Filt Rate - Afr Amer 102 mL/min (>60); Glucose 110 mg/dL (74-106); Potassium 4.6 mmol/L (3.5-5.1); Sodium Level 130 mmol/L (136-145)
== END ==
PROVIDERS: PCP Family Medicine Geriatric Medicine; Visit Provider Family Medicine Geriatric Medicine
DX: E87.1 Hypo-osmolality and hyponatremia (principal)
CPT/HCPCS: 36415; 80048; 83930; 83935; 84300

== ENCOUNTER → 2021-03-05 11:09 | Outpatient (CLI) | payer MEDICARE, SELFPAY ==
[2021-03-05 13:10] LABS: Anion Gap 5 (5-15); BUN 17 mg/dL (7-18); BUN/Creat Ratio 17.9 RATIO (10-20); Calcium,Total 8.9 mg/dL (8.5-10.1); Chloride 97 mmol/L (98-107); Creatinine, Serum 0.95 mg/dL (0.70-1.30); EST Glomerular Filtration Rate 80 mL/min (>60); Est Glom Filt Rate - Afr Amer 97 mL/min (>60); Glucose 122 mg/dL (74-106); Potassium 4.5 mmol/L (3.5-5.1); Sodium Level 131 mmol/L (136-145)
== END ==
PROVIDERS: PCP Family Medicine Geriatric Medicine; Visit Provider Family Medicine Geriatric Medicine
DX: E87.1 Hypo-osmolality and hyponatremia (principal)
CPT/HCPCS: 36415; 80048

== ENCOUNTER 2021-08-17 10:51 | Outpatient (CLI) | payer MEDICARE, SELFPAY ==
[2021-08-17 12:11] LABS: Absolute Lymphocyte Count 1.05 X10^3/uL (0.83-4.51); Absolute Neutrophil Count 3.1 X10^3/uL (2.0-7.7); Basophil# 0.04 X10^3/uL; Basophil% 0.8 % (0-1); Hematocrit 37.7 % (40-54); Hemoglobin 12.6 g/dL (13.0-16.5); Lymphocyte # 1.05 X10^3/ul (0.83-4.51); Lymphocyte % 21.2 % (19-41); Mean Corp Hgb Conc 33.4 g/dL (32-36); Mean Corpuscular Hgb 32.1 pg (27.0-32.0); Mean Corpuscular Volume 95.9 fL (80-94); Monocyte% 12.1 % (0-10); NRBC Flagged by Analyzer 0 % (0-5); Neutrophil # 3.05 X10^3/uL (2.7-7.7); Neutrophil % 61.5 % (47-70); Platelet Count 195 K/mm3 (150-450); RBC Distribution Width SD 45.9 fl (35.1-43.9); Red Blood Count 3.93 M/mm3 (4.6-6.2)
[2021-08-17 12:29] LABS: Vitamin D,25 Hydroxy 38.2 ng/mL
[2021-08-17 12:54] LABS: ALB/GLOB Ratio 1.1 RATIO (0.9-2.4); AST(SGOT) 27 U/L (15-37); Alanine Aminotransfer ALT/SGPT 46 U/L (16-61); Albumin, Serum 3.9 g/dL (3.2-5.0); Alkaline Phosphatase 137 U/L (45-117); Anion Gap 5 (5-15); BUN 20 mg/dL (7-18); Calcium,Total 8.5 mg/dL (8.5-10.1); Chloride 97 mmol/L (98-107); Creatinine, Serum 1.05 mg/dL (0.70-1.30); EST Glomerular Filtration Rate 71 mL/min (>60); Est Glom Filt Rate - Afr Amer 86 mL/min (>60); Globulin 3.7 g/dL (2.2-4.2); Glucose 115 mg/dL (74-106); Potassium 4.3 mmol/L (3.5-5.1); Protein, Total 7.6 g/dL (6.4-8.2); Sodium Level 131 mmol/L (136-145)
== END 2021-08-17 23:59 | disposition home or self-care (01) ==
PROVIDERS: PCP Family Medicine Geriatric Medicine; Visit Provider Family Medicine Geriatric Medicine
DX: E55.9 Vitamin D deficiency, unspecified (principal); I10 Essential (primary) hypertension
CPT/HCPCS: 36415; 80053; 82306; 84443; 85025

== ENCOUNTER → 2022-02-22 | Outpatient (CLI) | payer MEDICARE, SELFPAY ==
[2022-02-22 13:12] LABS: Absolute Lymphocyte Count 1.14 X10^3/uL (0.83-4.51); Absolute Neutrophil Count 3.1 X10^3/uL (2.0-7.7); Basophil# 0.05 X10^3/uL; Eosinophil# 0.17 X10^3/uL; Eosinophils% 3.3 % (0-5); Hematocrit 38.2 % (40-54); Hemoglobin 12.6 g/dL (13.0-16.5); Lymphocyte # 1.14 X10^3/ul (0.83-4.51); Lymphocyte % 22.2 % (19-41); Mean Platelet Vol. 10.2 fl (6.2-12.0); Monocyte# 0.67 X10^3/uL; Monocyte% 13.1 % (0-10); NRBC Flagged by Analyzer 0 % (0-5); Neutrophil # 3.08 X10^3/uL (2.7-7.7); Platelet Count 189 K/mm3 (150-450); RBC Distribution Width CV 13.8 % (11.6-14.6); RBC Distribution Width SD 50.2 fl (35.1-43.9); Red Blood Count 3.82 M/mm3 (4.6-6.2); White Blood Count 5.1 K/mm3 (4.4-11.0)
[2022-02-22 13:30] LABS: Vitamin D,25 Hydroxy 33.9 ng/mL
[2022-02-22 13:40] LABS: AST(SGOT) 19 U/L (15-37); Alanine Aminotransfer ALT/SGPT 35 U/L (16-61); Alkaline Phosphatase 120 U/L (45-117); Anion Gap 6 (5-15); BUN 20 mg/dL (7-18); BUN/Creat Ratio 20.3 RATIO (10-20); Calcium,Total 9.1 mg/dL (8.5-10.1); Chloride 99 mmol/L (98-107); Creatinine, Serum 0.98 mg/dL (0.70-1.30); EST Glomerular Filtration Rate 77 mL/min (>60); Est Glom Filt Rate - Afr Amer 93 mL/min (>60); Globulin 4.1 g/dL (2.2-4.2); Glucose 127 mg/dL (74-106); Potassium 4.2 mmol/L (3.5-5.1); Protein, Total 8.1 g/dL (6.4-8.2); Sodium Level 133 mmol/L (136-145); Thyroid Stim Hormone (TSH) 3.93 uIU/mL (0.358-3.74)
== END | disposition home or self-care (01) ==
LOC: POLAB3 09:41
PROVIDERS: PCP Family Medicine Geriatric Medicine; Visit Provider Family Medicine Geriatric Medicine
DX: I10 Essential (primary) hypertension (principal); E55.9 Vitamin D deficiency, unspecified
CPT/HCPCS: 36415; 80053; 82306; 84443; 85025

== ENCOUNTER → 2022-04-11 | Outpatient (CLI) | payer MEDICARE, SELFPAY ==
[2022-04-11 13:57] LABS: Thyroid Stim Hormone (TSH) 3.12 uIU/mL (0.358-3.74)
== END | disposition home or self-care (01) ==
LOC: POLAB3 09:21
PROVIDERS: PCP Family Medicine Geriatric Medicine; Visit Provider Family Medicine Geriatric Medicine
DX: E03.9 Hypothyroidism, unspecified (principal)
CPT/HCPCS: 36415; 84443

== ENCOUNTER → 2022-08-23 | Outpatient (CLI) | payer MEDICARE, SELFPAY ==
[2022-08-23 17:33] LABS: Absolute Lymphocyte Count 0.91 X10^3/uL (0.83-4.51); Basophil# 0.05 X10^3/uL; Eosinophil# 0.23 X10^3/uL; Eosinophils% 4.7 % (0-5); Hematocrit 40.1 % (40-54); Lymphocyte # 0.91 X10^3/ul (0.83-4.51); Lymphocyte % 18.6 % (19-41); Mean Corp Hgb Conc 32.4 g/dL (32-36); Mean Corpuscular Hgb 31.8 pg (27.0-32.0); Mean Platelet Vol. 10.2 fl (6.2-12.0); Monocyte# 0.69 X10^3/uL; Monocyte% 14.1 % (0-10); NRBC Flagged by Analyzer 0 % (0-5); Neutrophil % 61.2 % (47-70); Platelet Count 223 K/mm3 (150-450); RBC Distribution Width CV 13.3 % (11.6-14.6); RBC Distribution Width SD 48.2 fl (35.1-43.9); Red Blood Count 4.09 M/mm3 (4.6-6.2); White Blood Count 4.9 K/mm3 (4.4-11.0)
[2022-08-23 17:52] LABS: Vitamin D,25 Hydroxy 28.7 ng/mL
[2022-08-23 18:19] LABS: AST(SGOT) 21 U/L (15-37); Alanine Aminotransfer ALT/SGPT 38 U/L (16-61); Alkaline Phosphatase 136 U/L (45-117); Anion Gap 4 (5-15); BUN 24 mg/dL (7-18); BUN/Creat Ratio 22.4 RATIO (10-20); Calcium,Total 8.8 mg/dL (8.5-10.1); Chloride 97 mmol/L (98-107); Creatinine, Serum 1.07 mg/dL (0.70-1.30); EST Glomerular Filtration Rate 69 mL/min (>60); Est Glom Filt Rate - Afr Amer 84 mL/min (>60); Glucose 113 mg/dL (74-106); Potassium 4.5 mmol/L (3.5-5.1); Sodium Level 129 mmol/L (136-145)
== END | disposition home or self-care (01) ==
PROVIDERS: PCP Family Medicine Geriatric Medicine; Visit Provider Family Medicine Geriatric Medicine
DX: I10 Essential (primary) hypertension (principal); E03.9 Hypothyroidism, unspecified; E55.9 Vitamin D deficiency, unspecified
CPT/HCPCS: 36415; 80053; 82306; 84443; 85025

== ENCOUNTER → 2022-09-02 | Outpatient (CLI) | payer MEDICARE, SELFPAY ==
[2022-09-02 14:20] LABS: Anion Gap 1 (5-15); BUN 27 mg/dL (7-18); BUN/Creat Ratio 25.2 RATIO (10-20); Calcium,Total 9.3 mg/dL (8.5-10.1); Chloride 101 mmol/L (98-107); Creatinine, Serum 1.07 mg/dL (0.70-1.30); EST Glomerular Filtration Rate 69 mL/min (>60); Est Glom Filt Rate - Afr Amer 84 mL/min (>60); Glucose 121 mg/dL (74-106); Potassium 4.6 mmol/L (3.5-5.1); Sodium Level 131 mmol/L (136-145)
== END | disposition home or self-care (01) ==
LOC: POLAB3 11:01
PROVIDERS: PCP Family Medicine Geriatric Medicine; Visit Provider Family Medicine Geriatric Medicine
DX: E87.1 Hypo-osmolality and hyponatremia (principal)
CPT/HCPCS: 36415; 80048

== ENCOUNTER → 2023-02-27 | Outpatient (CLI) | payer MEDICARE, SELFPAY ==
[2023-02-27 12:29] LABS: Absolute Lymphocyte Count 1.26 X10^3/uL (0.83-4.51); Absolute Neutrophil Count 3.4 X10^3/uL (2.0-7.7); Basophil# 0.06 X10^3/uL; Eosinophil# 0.31 X10^3/uL; Eosinophils% 5.3 % (0-5); Hematocrit 37.9 % (40-54); Hemoglobin 12.3 g/dL (13.0-16.5); Lymphocyte # 1.26 X10^3/ul (0.83-4.51); Lymphocyte % 21.7 % (19-41); Mean Corp Hgb Conc 32.5 g/dL (32-36); Mean Corpuscular Hgb 32.8 pg (27.0-32.0); Mean Corpuscular Volume 101.1 fL (80-94); Mean Platelet Vol. 10.1 fl (6.2-12.0); Monocyte# 0.69 X10^3/uL; Monocyte% 11.9 % (0-10); NRBC Flagged by Analyzer 0 % (0-5); Neutrophil # 3.44 X10^3/uL (2.7-7.7); Neutrophil % 59.4 % (47-70); Platelet Count 208 K/mm3 (150-450); RBC Distribution Width CV 13.1 % (11.6-14.6); RBC Distribution Width SD 48.8 fl (35.1-43.9); Red Blood Count 3.75 M/mm3 (4.6-6.2); White Blood Count 5.8 K/mm3 (4.4-11.0)
[2023-02-27 12:38] LABS: Vitamin D,25 Hydroxy 40.6 ng/mL
[2023-02-27 13:14] LABS: AST(SGOT) 18 U/L (15-37); Alanine Aminotransfer ALT/SGPT 32 U/L (16-61); Albumin, Serum 3.7 g/dL (3.2-5.0); Alkaline Phosphatase 116 U/L (45-117); Anion Gap 7 (5-15); BUN 21 mg/dL (7-18); BUN/Creat Ratio 21.1 RATIO (10-20); Calcium,Total 8.9 mg/dL (8.5-10.1); Chloride 101 mmol/L (98-107); EST Glomerular Filtration Rate 75 mL/min (>60); Est Glom Filt Rate - Afr Amer 91 mL/min (>60); Globulin 3.8 g/dL (2.2-4.2); Glucose 128 mg/dL (74-106); Potassium 4.5 mmol/L (3.5-5.1); Protein, Total 7.5 g/dL (6.4-8.2); Sodium Level 134 mmol/L (136-145); Thyroid Stim Hormone (TSH) 2.65 uIU/mL (0.358-3.74)
== END | disposition home or self-care (01) ==
LOC: POLAB3 10:42
PROVIDERS: PCP Family Medicine Geriatric Medicine; Visit Provider Family Medicine Geriatric Medicine
DX: I10 Essential (primary) hypertension (principal); E55.9 Vitamin D deficiency, unspecified
CPT/HCPCS: 36415; 80053; 82306; 84443; 85025

== ENCOUNTER → 2023-08-29 | Outpatient (CLI) | payer MEDICARE, SELFPAY ==
[2023-08-29 12:18] LABS: Absolute Lymphocyte Count 1.26 X10^3/uL (0.83-4.51); Absolute Neutrophil Count 3.6 X10^3/uL (2.0-7.7); Basophil# 0.07 X10^3/uL; Basophil% 1.2 % (0-1); Hematocrit 36.6 % (40-54); Hemoglobin 11.9 g/dL (13.0-16.5); Lymphocyte # 1.26 X10^3/ul (0.83-4.51); Lymphocyte % 20.9 % (19-41); Mean Corp Hgb Conc 32.5 g/dL (32-36); Mean Corpuscular Hgb 31.8 pg (27.0-32.0); Mean Corpuscular Volume 97.9 fL (80-94); Mean Platelet Vol. 10.2 fl (6.2-12.0); Monocyte# 0.81 X10^3/uL; Monocyte% 13.5 % (0-10); NRBC Flagged by Analyzer 0 % (0-5); Neutrophil # 3.55 X10^3/uL (2.7-7.7); Neutrophil % 58.9 % (47-70); Platelet Count 202 K/mm3 (150-450); RBC Distribution Width CV 13.2 % (11.6-14.6); RBC Distribution Width SD 47.6 fl (35.1-43.9); Red Blood Count 3.74 M/mm3 (4.6-6.2)
[2023-08-29 12:38] LABS: Vitamin D,25 Hydroxy 37.1 ng/mL
[2023-08-29 12:47] LABS: ALB/GLOB Ratio 1.1 RATIO (0.9-2.4); AST(SGOT) 19 U/L (15-37); Alanine Aminotransfer ALT/SGPT 32 U/L (16-61); Albumin, Serum 3.8 g/dL (3.2-5.0); Alkaline Phosphatase 114 U/L (45-117); Anion Gap 5 (5-15); BUN 23 mg/dL (7-18); BUN/Creat Ratio 20.4 RATIO (10-20); Chloride 99 mmol/L (98-107); Creatinine, Serum 1.13 mg/dL (0.70-1.30); EST Glomerular Filtration Rate 65 mL/min (>60); Est Glom Filt Rate - Afr Amer 79 mL/min (>60); Globulin 3.6 g/dL (2.2-4.2); Glucose 114 mg/dL (74-106); Potassium 4.2 mmol/L (3.5-5.1); Protein, Total 7.4 g/dL (6.4-8.2); Sodium Level 133 mmol/L (136-145); Thyroid Stim Hormone (TSH) 2.62 uIU/mL (0.358-3.74)
== END | disposition home or self-care (01) ==
LOC: POLAB3 10:36
PROVIDERS: PCP Family Medicine Geriatric Medicine; Visit Provider Family Medicine Geriatric Medicine
DX: I10 Essential (primary) hypertension (principal); E55.9 Vitamin D deficiency, unspecified
CPT/HCPCS: 36415; 80053; 82306; 84443; 85025

== ENCOUNTER → 2024-02-28 | Outpatient (CLI) | payer MEDICARE, SELFPAY ==
[2024-02-28 11:02] LABS: Absolute Lymphocyte Count 1.24 X10^3/uL (0.83-4.51); Absolute Neutrophil Count 3.2 X10^3/uL (2.0-7.7); Basophil# 0.07 X10^3/uL; Basophil% 1.2 % (0-1); Eosinophil# 0.35 X10^3/uL; Eosinophils% 6.2 % (0-5); Hemoglobin 11.9 g/dL (13.0-16.5); Lymphocyte # 1.24 X10^3/ul (0.83-4.51); Lymphocyte % 21.8 % (19-41); Mean Corp Hgb Conc 33.1 g/dL (32-36); Mean Corpuscular Hgb 32.4 pg (27.0-32.0); Mean Corpuscular Volume 98.1 fL (80-94); Monocyte# 0.78 X10^3/uL; Monocyte% 13.7 % (0-10); NRBC Flagged by Analyzer 0 % (0-5); Neutrophil # 3.22 X10^3/uL (2.7-7.7); Neutrophil % 56.6 % (47-70); Platelet Count 218 K/mm3 (150-450); RBC Distribution Width CV 12.9 % (11.6-14.6); RBC Distribution Width SD 46.1 fl (35.1-43.9); Red Blood Count 3.67 M/mm3 (4.6-6.2); White Blood Count 5.7 K/mm3 (4.4-11.0)
[2024-02-28 11:29] LABS: Vitamin D,25 Hydroxy 31.3 ng/mL
[2024-02-28 11:38] LABS: AST(SGOT) 22 U/L (15-37); Alanine Aminotransfer ALT/SGPT 35 U/L (16-61); Albumin, Serum 3.8 g/dL (3.2-5.0); Alkaline Phosphatase 125 U/L (45-117); Anion Gap 5 (5-15); BUN 27 mg/dL (7-18); BUN/Creat Ratio 23.3 RATIO (10-20); Calcium,Total 9.1 mg/dL (8.5-10.1); Chloride 102 mmol/L (98-107); Creatinine, Serum 1.16 mg/dL (0.70-1.30); EST Glomerular Filtration Rate 63 mL/min (>60); Est Glom Filt Rate - Afr Amer 76 mL/min (>60); Globulin 3.8 g/dL (2.2-4.2); Glucose 112 mg/dL (74-106); Potassium 4.3 mmol/L (3.5-5.1); Protein, Total 7.6 g/dL (6.4-8.2); Sodium Level 133 mmol/L (136-145)
== END | disposition home or self-care (01) ==
LOC: POLAB3 10:44
PROVIDERS: PCP Family Medicine Geriatric Medicine; Visit Provider Family Medicine Geriatric Medicine
DX: I10 Essential (primary) hypertension (principal); E55.9 Vitamin D deficiency, unspecified
CPT/HCPCS: 36415; 80053; 82306; 84443; 85025